=== PATIENT | female | born 1930 | race Caucasian/White ===

== ENCOUNTER 2017-11-13 16:34 | Emergency (ER) | payer MEDICARE ==
--- NOTE | 2017-11-13 17:17 | ED ---
Influenza-Like Illness - HPI Summary HPI Summary: 87F presents with cough and fatigue for past 6 days. She resides at a alf and that has had high rate of influenza. She admits to shortness of breath. She denies any nausea, vomiting, or diarrhea. She denies any headache. She denies any known fever. She admits to intermittent generalized abdominal pain. She admits to a sore throat and nasal congestion. She denies any increase swelling or pain in her calf. She denies any chest pain. She states I was going okay and that they picked me up today and took me to the hospital. She has history of COPD and HTN. per dr breen she has been having low grade fevers, malaise and cough for 6 days and sent in for chest xray. - History of Current Complaint Chief Complaint: EDFluSymptoms Time Seen by Provider: 11/13/17 16:56 - Allergy/Home Medications Allergies/Adverse Reactions: Allergies Allergy/AdvReac Type Severity Reaction Status Date / Time Amoxicillin [From Augmentin] Allergy Unknown Unknown Verified 07/18/16 15:31 Reaction Details Carisoprodol [From Soma] Allergy Unknown Unknown Verified 07/18/16 15:31 Reaction Details Clavulanic Acid Allergy Unknown Unknown Verified 07/18/16 15:31 [From Augmentin] Reaction Details Codeine Allergy Unknown Unknown Verified 07/18/16 15:31 Reaction Details Lisinopril Allergy Unknown Unknown Verified 07/18/16 15:31 Reaction Details Moxifloxacin [From Avelox] Allergy Unknown Unknown Verified 07/18/16 15:31 Reaction Details PMH/Surg Hx/FS Hx/Imm Hx Endocrine/Hematology History: Reports: Hx Anemia, Other Endocrine/Hematological Disorders - Hyponatremia Denies: Hx Diabetes, Hx Thyroid Disease Cardiovascular History: Reports: Hx Angina, Hx Coronary Artery Disease, Hx Hypertension, Other Cardiovascular Problems/Disorders - Chronic Chest pain, 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 Denies: Hx Congestive Heart Failure, Hx Hypercholesterolemia, Hx Myocardial Infarction, Hx Pacemaker/ICD, Hx Valvular Heart Disease Respiratory History: Reports: Hx Chronic Obstructive Pulmonary Disease (COPD) - per CT past admissions Denies: Hx Asthma, Other Respiratory Problems/Disorders GI History: Reports: Hx Gastroesophageal Reflux Disease, Other GI Disorders - endometriosis, hemorrhoids History: Denies: Other Problems/Disorders - frequency Musculoskeletal History: Reports: Hx Back Problems, Other Musculoskeletal History - degen bones, chronic edema Denies: Hx Arthritis, Hx Osteoporosis Sensory History: Reports: Hx Cataracts, Hx Contacts or Glasses, Hx Macular Degeneration, Hx Vision Problem, Hx Hearing Aid, Hx Hearing Problem Denies: Hx Glaucoma Opthamlomology History: Reports: Hx Cataracts, Hx Contacts or Glasses, Hx Macular Degeneration, Hx Vision Problem Denies: Hx Glaucoma Neurological History: Reports: Other Neuro Impairments/Disorders - bells palsy, shingles, confusion, INVASIVE MELANOMA LEFT SIDE OF FACE Denies: Hx Headaches, Hx Seizures, Hx Transient Ischemic Attacks (TIA) Psychiatric History: Reports: Hx Anxiety, Hx Depression, Other Psychiatric Issues/Disorders - Sleep disorders Denies: Hx Panic Disorder - Cancer History Cancer Type, Location and Year: skin CA: invasive melanoma left side of face - Surgical History Surgery Procedure, Year, and Place: Hysterectomy, Left knee, tonsilectomy, apendectomy, bunuons, MELANOMA REMOVED L SIDE OF FACE 2014 DR [place]. 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 Negative: Vomiting, Diarrhea, Nausea All Other Systems Reviewed And Are Negative: Yes Physical Exam Triage Information Reviewed: Yes Vital Signs On Initial Exam: Initial Vitals Temp Pulse Resp BP Pulse Ox 99.6 F 72 20 134/33 94 11/13/17 16:46 11/13/17 16:46 11/13/17 16:46 11/13/17 16:46 11/13/17 16:46 Vital Signs Reviewed: Yes Appearance: Positive: Well-Appearing Skin: Positive: Warm, Dry Head/Face: Positive: Normal Head/Face Inspection Eyes: Positive: Normal, EOMI, OREN, Conjunctiva Clear ENT: Positive: Pharyngeal erythema, Nasal congestion, TMs normal, Uvula midline , Other - soft palate symmetric. Negative: Tonsillar swelling, Tonsillar exudate, Trismus, Muffled voice Neck: Positive: Supple, Nontender, No Lymphadenopathy Respiratory/Lung Sounds: Positive: Clear to Auscultation, Breath Sounds Present Cardiovascular: Positive: Normal, RRR Abdomen Description: Positive: Nontender, Soft Bowel Sounds: Positive: Present Musculoskeletal: Positive: Normal Neurological: Positive: Normal Psychiatric: Positive: Normal - Ro Coma Scale Coma Scale Total: 15 Diagnostics - Vital Signs Vital Signs Temp Pulse Resp BP Pulse Ox 11/13/17 16:46 99.6 F 72 20 134/33 94 - Laboratory Result Diagrams: 11/13/17 17:24 11/13/17 17:24 Lab Statement: Any lab studies that have been ordered have been reviewed, and results considered in the medical decision making process. - Radiology chest Xray Interpretation: Positive (See Comments) - IMPRESSION: HYPERINFLATION. NO ACTIVE CARDIOPULMONARY DISEASE. Radiology Interpretation Completed By: Radiologist Flu Symptom Course/Dx - Course Course Of Treatment: 87F presents with cough and fatigue for past 6 days. She resides at a alf and that has had high rate of influenza. She admits to shortness of breath. She denies any nausea, vomiting, or diarrhea. She denies any headache. She denies any known fever. She admits to intermittent generalized abdominal pain. She admits to a sore throat and nasal congestion. She denies any increase swelling or pain in her calf. She states I was going okay and that they picked me up today and took me to the hospital. She has history of COPD and HTN. per dr breen she has been having low grade fevers, malaise and cough for 6 days and sent in for chest xray. on exam lungs CTA. pharynx erythema, sinus congestion present. flu neg. wbc 10. NA and Cl low so will give a liter of fluids. chest xray shows hyperinflation. patient states would like to go home. likely as viral illness. will discharge home to follow up with primary. patient understand and agrees with plan. - Diagnoses Differential Diagnosis/HQI/PQRI: Positive: Bronchitis, Influenza, Pneumonia Provider Diagnoses: Cough Discharge - Discharge Plan Condition: Good Disposition: HOME Patient Education Materials: Acute Cough (ED) Referrals: Rodolfo Robledo MD [Primary Care Provider] - Additional Instructions: Follow up with primary within 5 days Return to ED if develop any new or worsening symptoms
[2017-11-13 17:40] LABS: ABS Basophils 0 10^3/ul (0-0.2); ABS Eosinophils 0.1 10^3/ul (0-0.6); ABS Lymphocytes 1.2 10^3/ul (1.0-4.8); ABS Monocytes 1.2 10^3/ul (0-0.8); ABS Neutrophils 7.7 10^3/ul (1.5-7.7); ABS Nucleated RBC 0 10^3/ul; Eosinophil % 0.5 % (0-6); Hematocrit 32 % (35-47); Mean Corpuscular HGB Conc 31 g/dl (31-36); Mean Corpuscular Hemoglobin 22 pg (27-31); Mean Corpuscular Volume 71 fL (80-97); Mean Platelet Volume 8 um3 (7.4-10.4); Nucleated Red Blood Cells % 0; Platelet Count 210 10^3/ul (150-450); Red Blood Count 4.48 10^6/ul (4.0-5.4); Red Cell Distribution Width 21 % (10.5-15); White Blood Count 10.2 10^3/ul (3.5-10.8)
[2017-11-13 17:48] LABS: EGFR Non-African American 50.6 (>60)
--- NOTE | 2017-11-13 17:49 | RAD ---
HISTORY: Cough COMPARISONS: July 18, 2016 VIEWS: 4: Frontal dual-energy and lateral views of the chest. FINDINGS: CARDIOMEDIASTINAL SILHOUETTE: The cardiomediastinal silhouette is normal. LEANDER: The leander are normal. PLEURA: The costophrenic angles are sharp. No pleural abnormalities are noted. LUNG PARENCHYMA: There is hyperinflation with flattening of the diaphragm and expansion of the AP diameter of the chest. ABDOMEN: The upper abdomen is clear. There is no subphrenic gas. BONES AND SOFT TISSUES: No bone or soft tissue abnormalities are noted. OTHER: None. IMPRESSION: HYPERINFLATION. NO ACTIVE CARDIOPULMONARY DISEASE.
[2017-11-13] MEDS ORDERED: NS 0.9% 1000 ML* 1,000 ML IV ONE (17:51)
[2017-11-13 20:30] VITALS: BP 121/67
== END 2017-11-13 20:30 | disposition home or self-care (01) ==
LOC: ED 16:34
DX: R05 Cough (principal); R10.84 Generalized abdominal pain; R06.02 Shortness of breath
CPT/HCPCS: 36415; 71046; 80053; 83605; 85025; 87502; 99283

== ENCOUNTER 2018-02-19 01:23 | Inpatient (IN) | payer MEDICARE ==
[2018-02-19 02:41] LABS: INR 0.97 (0.77-1.02)
[2018-02-19 02:44] LABS: EGFR Non-African American 54.2 (>60)
[2018-02-19] MEDS ORDERED: Clopidogrel TAB* 300 MG PO ONE (02:51)
[2018-02-19] MEDS ORDERED: Enoxaparin(*) 60 MG/0.6 ML SYR SUBCUT ONE (02:51)
[2018-02-19] MEDS ORDERED: Nitroglycerin 2% OINT* 1 GM PAK TOPICAL ONE (02:59)
[2018-02-19 03:04] LABS: ABS Basophils 0 10^3/ul (0-0.2); ABS Eosinophils 0.3 10^3/ul (0-0.6); ABS Lymphocytes 1.4 10^3/ul (1.0-4.8); ABS Monocytes 0.8 10^3/ul (0-0.8); ABS Neutrophils 4.8 10^3/ul (1.5-7.7); ABS Nucleated RBC 0 10^3/ul; Eosinophil % 4.1 % (0-6); Hematocrit 33 % (35-47); Hemoglobin 10.1 g/dl (12.0-16.0); Lymphocyte % 19.1 % (25-47); Mean Corpuscular HGB Conc 31 g/dl (31-36); Mean Corpuscular Hemoglobin 23 pg (27-31); Mean Corpuscular Volume 76 fL (80-97); Mean Platelet Volume 8.5 um3 (7.4-10.4); Nucleated Red Blood Cells % 0; Platelet Count 200 10^3/ul (150-450); Red Blood Count 4.31 10^6/ul (4.0-5.4); Red Cell Distribution Width 18 % (10.5-15); White Blood Count 7.4 10^3/ul (3.5-10.8)
--- NOTE | 2018-02-19 03:31 | ED ---
Malcolm Walker Gabriel, scribed for Chari Matson MD on 02/19/18 at 0212 . HPI Chest Pain - HPI Summary HPI Summary: This patient is a 87 year old F BIBA to [facility] from her assisted living facility after she woke up with CP pain that began [employer]. The patient rates the pain 0/10 in severity. Patient reports feeling cold, CP (that has resolved), LUE pain, and COVINGTON. Patient denies n/v and SOB. EMS report the original call was placed for a COVINGTON but on arrival she c/o CP. Pt is pain free at this time and was given nitro /ASA by EMS. She states all pain has resolved except for her LUE pain. Hx CVA and HTN. - History of Current Complaint Chief Complaint: EDChestPainROMI Time Seen by Provider: 02/19/18 01:41 Hx Obtained From: Patient Onset/Duration: Still Present, Resolved Timing: Constant Initial Severity: Moderate Current Severity: Mild Pain Intensity: 0 Pain Scale Used: 0-10 Numeric Chest Pain Radiates: No Alleviating Factor(s): NTG 123, Spontaneous Resolution Associated Signs and Symptoms: Positive: Negative - n/v and SOB, Other: - cold, CP (that has resolved), LUE pain, and COVINGTON - Additional Pertinent History Primary Care Physician: [id number] - Allergy/Home Medications Allergies/Adverse Reactions: Allergies Allergy/AdvReac Type Severity Reaction Status Date / Time amoxicillin [From Augmentin] Allergy Unknown Verified 02/19/18 01:36 Reaction Details carisoprodol [From Soma] Allergy Unknown Verified 02/19/18 01:36 Reaction Details clavulanic acid Allergy Unknown Verified 02/19/18 01:36 [From Augmentin] Reaction Details codeine Allergy Unknown Verified 02/19/18 01:36 Reaction Details lisinopril Allergy Unknown Verified 02/19/18 01:36 Reaction Details moxifloxacin [From Avelox] Allergy Unknown Verified 02/19/18 01:36 Reaction Details Home Medications: Home Medications Escitalopram (NF) [Lexapro 5 mg (NF)] 15 mg PO DAILY 02/19/18 [History Confirmed 02/19/18] GuaiFENesin DM* [Robitussin DM*] 10 ml PO Q4H PRN 02/19/18 [History Confirmed ] Nadolol (NF) 20 mg PO DAILY 02/19/18 [History Confirmed 02/19/18] Polyvinyl Alcohol/Povidone/Pf [Refresh] 1 sarah beth OP DAILY 02/19/18 [History Confirmed 02/19/18] PMH/Surg Hx/FS Hx/Imm Hx Endocrine/Hematology History: Reports: Hx Anemia, Other Endocrine/Hematological Disorders - Hyponatremia Denies: Hx Diabetes, Hx Thyroid Disease Cardiovascular History: Reports: Hx Angina, Hx Coronary Artery Disease, Hx Hypertension, Other Cardiovascular Problems/Disorders - Chronic Chest pain, 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 Denies: Hx Congestive Heart Failure, Hx Hypercholesterolemia, Hx Myocardial Infarction, Hx Pacemaker/ICD, Hx Valvular Heart Disease Respiratory History: Reports: Hx Chronic Obstructive Pulmonary Disease (COPD) - per CT past admissions Denies: Hx Asthma, Other Respiratory Problems/Disorders GI History: Reports: Hx Gastroesophageal Reflux Disease, Other GI Disorders - endometriosis, hemorrhoids History: Denies: Other Problems/Disorders - frequency Musculoskeletal History: Reports: Hx Back Problems, Other Musculoskeletal History - degen bones, chronic edema Denies: Hx Arthritis, Hx Osteoporosis Sensory History: Reports: Hx Cataracts, Hx Contacts or Glasses, Hx Macular Degeneration, Hx Vision Problem, Hx Hearing Aid, Hx Hearing Problem Denies: Hx Glaucoma Opthamlomology History: Reports: Hx Cataracts, Hx Contacts or Glasses, Hx Macular Degeneration, Hx Vision Problem Denies: Hx Glaucoma Neurological History: Reports: Other Neuro Impairments/Disorders - bells palsy, shingles, confusion, INVASIVE MELANOMA LEFT SIDE OF FACE Denies: Hx Headaches, Hx Seizures, Hx Transient Ischemic Attacks (TIA) Psychiatric History: Reports: Hx Anxiety, Hx Depression, Other Psychiatric Issues/Disorders - Sleep disorders Denies: Hx Panic Disorder - Cancer History Cancer Type, Location and Year: skin CA: invasive melanoma left side of face - Surgical History Surgery Procedure, Year, and Place: Hysterectomy, Left knee, tonsilectomy, apendectomy, bunuons, MELANOMA REMOVED L SIDE OF FACE 2014 DR [place]. 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 Denies: History Other Infectious Disease, Traveled Outside the [place] in Last 30 Days - Family History Known Family History: Positive: Cardiac Disease - sister - Social History Alcohol Use: None Hx Substance Use: No Substance Use Type: Reports: None Hx Tobacco Use: No Smoking Status (MU): Never Smoked Tobacco Have You Smoked in the Last Year: No Review of Systems Positive: Other - feeels cold Positive: Chest Pain Negative: Shortness Of Breath Negative: Vomiting, Nausea Positive: Other - LUE pain Positive: Headache All Other Systems Reviewed And Are Negative: Yes Physical Exam - Summary Physical Exam Summary: VITAL SIGNS: Reviewed. GENERAL: Patient is an elderly female who is lying comfortable in the stretcher. Patient is not in any acute respiratory distress. HEAD AND FACE: No signs of trauma. No ecchymosis, hematomas or skull depressions. No sinus tenderness. EYES: PERRLA, EOMI x 2, No injected conjunctiva, no nystagmus. EARS: Hearing grossly intact. Ear canals and tympanic membranes are within normal limits. MOUTH: Oropharynx within normal limits. NECK: Supple, trachea is midline, no adenopathy, no JVD, no carotid bruit, no c- spine tenderness, neck with full ROM. CHEST: Symmetric, no tenderness at palpation LUNGS: Clear to auscultation bilaterally. No wheezing or crackles. CVS: Regular rate and rhythm, S1 and S2 present, no murmurs or gallops appreciated. ABDOMEN: Soft, non-tender. No signs of distention. No rebound no guarding, and no masses palpated. Bowel sounds are normal. EXTREMITIES: FROM in all major joints, no edema, no cyanosis or clubbing. NEURO: Alert and oriented x 3. Left sided facial droop that is old SKIN: Dry and warm Triage Information Reviewed: Yes Vital Signs On Initial Exam: Initial Vitals Temp Pulse Resp BP Pulse Ox 98.0 F 57 17 184/72 98 02/19/18 01:24 02/19/18 01:24 02/19/18 01:24 02/19/18 01:24 02/19/18 01:24 Vital Signs Reviewed: Yes Diagnostics - Vital Signs Vital Signs Temp Pulse Resp BP Pulse Ox 02/19/18 01:51 61 16 95 02/19/18 01:24 98.0 F 57 17 184/72 98 - Laboratory Result Diagrams: 02/19/18 02:16 Lab Statement: Any lab studies that have been ordered have been reviewed, and results considered in the medical decision making process. - Radiology CXR Radiology Interpretation Completed By: ED Physician - no acute process - EKG 01:56 Cardiac Rate: Bradycardia EKG Rhythm: Sinus Bradycardia - at 56 BPM EKG Interpretation: PVCs, LVH, no acute ischemic changes Re-Evaluation - Re-Evaluation First Eval Re-Evaluation Time: 03:01 Change: Unchanged Comment: I discussed admission with the patient Chest Pain Course/Dx - Diagnoses Provider Diagnoses: Acute coronary syndrome - Provider Notifications Discussed Care Of Patient With: Fidel Winchester Time Discussed With Above Provider: 02:56 Instructed by Provider To: Admit As Inpatient Discharge - Sign-Out/Discharge Documenting (check all that apply): Discharge - Discharge Plan Condition: Fair Disposition: ADMITTED TO [facility] Referrals: Rodolfo Robledo MD [Primary Care Provider] - The documentation as recorded by the Malcolm webber Gabriel accurately reflects the service I personally performed and the decisions made by Dano adler Abdul, MD.
[2018-02-19] MEDS ORDERED: Metoprolol Tartrate IV* 1 MG/ML 5 ML VIAL IV PRN (03:42)
[2018-02-19] MEDS ORDERED: Nitroglycerin TAB 0.4 MG* 0.4 MG TAB SL PRN (03:43)
[2018-02-19] MEDS ORDERED: Senna TAB PO PRN (03:43)
[2018-02-19] MEDS ORDERED: GuaiFENesin DM* 5 ML UDC PO PRN (03:43)
[2018-02-19] MEDS ORDERED: Acetaminophen TAB* 325 MG PO PRN (03:43)
[2018-02-19] MEDS ORDERED: Atorvastatin* 80 MG TAB PO ONE (04:09)
[2018-02-19] MEDS: Metoprolol Tartrate TAB* 25 MG PO SCH ×4 (05:32→22:12)
--- NOTE | 2018-02-19 07:25 | HP ---
HISTORY AND PHYSICAL: DATE OF ADMISSION: 02/19/18 ADMITTING PROVIDER: Fidel Winchester MD PRIMARY CARE PROVIDER: Dr. Herrmann. CHIEF COMPLAINT: Left-sided shoulder and chest pain. 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 She was in her usual state of health, went to sleep around 10:30 p.m. on 02/18/18. She woke up with extreme "cutting" pain in her left shoulder radiating down through her left chest. She is a poor historian, but seems to indicate that this lasted on the order of seconds to minutes rather than longer than that. She denies any shortness of breath, nausea, vomiting, diaphoresis. She has never experienced anything like this. EMS was called and she got nitroglycerin and 324 mg of aspirin. On presentation to the [facility] Room, she had an elevated troponin of 0.13. EKG showed T-wave inversions and aVL in lead I along with PVCs. No other ST elevations or depressions. She was referred to hospitalist service for chest pain and ACS rule out. She was also noted to be hypertensive to 190s. She was given 300 mg Plavix, Lovenox 50 mg and started on a nitro patch by Dr. Matson in the emergency room. At baseline, the patient is from [facility], ambulates with a walker. She is a DNR/DNI. She is followed up with Dr. Clancy in the past. Echocardiogram from 04/09/16 showed ejection fraction of 55% to 60% with moderate tricuspid valve regurgitation, mild-to- moderate mitral valve regurgitation, mild pulmonary hypertension. She had a stress test on 05/31/16, which was low risk, EF of 70%. PAST MEDICAL HISTORY: Hypertension, anxiety, depression, facial shingles status post surgery and Cordoba's palsy, GERD, endometriosis. PAST SURGICAL HISTORY: Total abdominal bilateral salpingo-oophorectomy, hysterectomy, right facial surgery above right eye for facial shingles. MEDICATIONS: Include: 1. Losartan 50 mg daily. 2. Valium 2 mg p.o. b.i.d. 3. Nadolol 20 mg daily. 4. Lexapro 15 mg daily. 5. Nitroglycerin 0.4 mg sublingual as needed. 6. Omeprazole 20 mg daily. 7. Fluticasone b.i.d. 8. Trazodone 50 mg q.h.s. 9. Oxybutynin 15 mg daily. 10. Robitussin 10 mL p.o. q.4 hours p.r.n. 11. Senna 2 tablets p.o. daily p.r.n. 12. Refresh artificial tear ointment 1 ointment both eyes q.p.m. 13. Biotene 2 sprays p.o. q.3 hours p.r.n. 14. Zinc oxide 12.8% topical to face b.i.d. 15. Polyvinyl alcohol (Refresh 1 drop) OP daily. 16. Magnesium oxide 400 mg p.o. daily. ALLERGIES: AMOXICILLIN, SOMA, AUGMENTIN, CODEINE, LISINOPRIL, MOXIFLOXACIN. FAMILY HISTORY: Dad had "heart problems." Does not know details of mother's or know the ages that they passed. Per EMR, they both passed in their 90s. SOCIAL HISTORY: The patient is a resident of [facility]. Her medical surrogate is her niece, Janis Ashley at [phone]. She has a sister, who is about to leave a care facility. Formerly was , had no children. Had a miscarriage. She is never a smoker. Does not drink or use other recreational drugs. REVIEW OF SYSTEMS: A complete 14-point review of systems is negative except as per HPI. She denies any shortness of breath, cough, fevers, chills, abdominal pain, nausea, vomiting, diarrhea, constipation, recent falls, rashes, or headaches. PHYSICAL EXAMINATION GENERAL APPEARANCE: No acute distress, sitting up or lying down in the [facility]. VITAL SIGNS: Temperature 98.0, pulse rate 63, satting 95% to 98% on room air, respiratory rate 12 to 17, blood pressure initially 191/97. HEENT: Normocephalic, atraumatic. Pupils are equally round and reactive to light. Evidence of an old scar above right eye. The right eyelid droops. RESPIRATORY: Clear to auscultation bilaterally with no wheezing, rales, or rhonchi. CARDIOVASCULAR: Regular rate and rhythm. No murmurs, rubs, or gallops. ABDOMEN: Soft, nontender, nondistended. EXTREMITIES: Warm and well perfused. Trace edema bilaterally. NEUROLOGIC: Cranial nerves intact other than right eyelid droop. Tongue midline. Facial sensation is equal bilaterally. Tailman strength intact. Hip flexion 5/5. Sensation intact in the right lower extremities. DIAGNOSTIC STUDIES/LAB DATA: White count 7.4, hemoglobin 10.1, hematocrit 33, MCV is 76, platelets 200. INR 0.97. Sodium 136, potassium 4.1, chloride 101, carbon dioxide 28, BUN 21, creatinine 0.97, glucose 121, lactic acid 0.8. Total bili 0.4, AST 31, ALT 23, alk phos 23. Troponin 0.13. Albumin 3.6. Chest x-ray with no infiltrate or effusions per my read. EKG with left anterior fascicular block, Qs in aVL and V1, [address] elevation in V1. ASSESSMENT AND PLAN: Stacey Oconnor is an 87-year-old female with past medical history of hypertension, Cordoba's palsy, preserved ejection fraction in 2015 with negative stress test in May 2016, presenting with 10/10 cutting chest pain and the left shoulder radiating down through the entire left chest that last for approximately a few seconds to a few minutes. The patient is a very poor historian. She is presenting with a troponin elevation of 0.13 and some T-wave inversions and hypertensive urgency of 190s/90s. She is status post Plavix, Lovenox in the emergency room and then received aspirin 324 mg and nitro sublingual with EMS. We will admit her to observation status on telemetry. Trend troponins every 3 hours. Continue aspirin 81 mg daily and she has been put on nitro paste by ED physician to also help with her blood pressure, starting metoprolol tartrate p.o. 25 mg p.o. q.6 hours. We will consult Cardiology in the morning and repeat EKG at 8 p.m. Her chest pain is now largely resolved, though she states she is slightly uncomfortable on that left side, but minimally so. For her hypertensive urgency, starting the metoprolol and continuing the nitroglycerin ointment. Also p.r.n. metoprolol tartrate 5 mg IV q.2 hours p.r.n. following his heart rates above 55. She will be n.p.o. for now. She is a DNR/DNI. Copy of the MOLST is in chart. Holding her losartan 50 mg, but consider restart later in the day depending on her blood pressures and heart rates. Continue note Plavix to start on 02/20/18. Medical surrogate is rafaelradha Janis Mendynicolenoraheem. [id number]/[facility] #: [id number] MTDD
--- NOTE | 2018-02-19 07:43 | RAD ---
HISTORY: Chest pain COMPARISONS: November 13, 2017 VIEWS: 1: frontal portable view of the chest at 2:00 AM FINDINGS: LINES AND TUBES: None. CARDIOMEDIASTINAL SILHOUETTE: The cardiac silhouette is mildly enlarged. The cardiomediastinal silhouette is otherwise normal for portable technique. PLEURA: The costophrenic angles are sharp. No pleural abnormalities are noted. LUNG PARENCHYMA: There is hyperinflation. ABDOMEN: The upper abdomen is clear. There is no subphrenic gas. BONES AND SOFT TISSUES: No bone or soft tissue abnormalities are noted. IMPRESSION: COPD. MILD CARDIOMEGALY. NO ACTIVE CARDIOPULMONARY DISEASE.
[2018-02-19] MEDS: Isosorbide Dinitrate TAB* 20 MG PO SCH ×2 (08:37→17:20)
[2018-02-19] MEDS: Polyethylene Glycol 3350* 17 GM PACKET PO SCH (08:37)
[2018-02-19] MEDS: Magnesium Oxide TAB* 400 MG PO SCH (08:37)
[2018-02-19] MEDS: Diazepam TAB(*) 5 MG PO SCH ×2 (08:37→20:36)
[2018-02-19] MEDS: Sucralfate TAB* 1 GM PO SCH ×2 (08:37→20:37)
[2018-02-19] MEDS: Aspirin 81 mg CHEW TAB* 81 MG TAB.CHEW PO SCH (08:37)
[2018-02-19] MEDS: Fluticasone NASAL SPRAY 50MCG* 16 gm SPRAY BTL BOTH NARES SCH ×2 (08:38→22:12)
--- NOTE | 2018-02-19 09:26 | ECHO ---
Patient: KENDY KLEIN [facility] Rec#: [id number] : 1930 Date: 02/19/2018 Age: 87y Height: 154.94 cm / 61.0 in Weight: 49.9 kg / 110.0 lbs Sex: F BSA: 1.47 Room#: [facility] Admit Date#: 02/19/2018 Type: Inpatient Referring: Fidel Winchester Reading: Alex Ward MD Kitchen Manager: Eva Gee RDCS CC: Rodolfo Robledo MD Transthoracic Echocardiogram Indication: Chest Pain, ACS. BP: 182/52 HR: 56 Rhythm: NSR with PVCs Findings History: HTN, CVA, Ventricular bigeminy, Cordoba's Palsy, and COPD. Technical Comments: The study quality is good. Completed at 0840. Left Ventricle: The left ventricular chamber size is normal. Mild concentric left ventricular hypertrophy is observed. Mild global hypokinesis of the left ventricle is observed. There is mildly decreased left ventricular systolic function. The estimated ejection fraction is 40-45%. There is no consistent Doppler evidence of clinically significant diastolic dysfunction. The apical septal, apical anterior, apical lateral, and apical inferior wall segments are hypokinetic (score 2). Overall wallmotion score index is 2.00 Left Atrium: The left atrium is moderately dilated. Right Ventricle: The right ventricular cavity size is normal. The right ventricular global systolic function is low normal. Right Atrium: The right atrium is mildly dilated. Aortic Valve: The aortic valve is trileaflet. The aortic valve leaflets are mildly thickened. There is a trace of aortic regurgitation. There is no evidence of aortic stenosis. Mitral Valve: The mitral valve leaflets are mildly thickened. There is moderate mitral regurgitation. There is no evidence of mitral stenosis. Tricuspid Valve: The tricuspid valve leaflets are mildly thickened. There is moderate to severe tricuspid regurgitation. The right ventricular systolic pressure is estimated at 52 mmHg. There is evidence of moderate pulmonary hypertension. There is no tricuspid stenosis. Pulmonic Valve: The pulmonic valve appears normal. There is mild pulmonic regurgitation. There is no pulmonic stenosis. Pericardium: There is no significant pericardial effusion. Aorta: There is no dilatation of the ascending aorta. There is no dilatation of the aortic arch. The aortic root is normal in size. Pulmonary Artery: The main pulmonary artery is not well visualized. Venous: The inferior vena cava appears normal in size. There is an approximate 50% respiratory change in the inferior vena cava dimension. Conclusions There is mildly decreased left ventricular systolic function. The estimated ejection fraction is 40-45%. There is no consistent Doppler evidence of clinically significant diastolic dysfunction. The apical septal, apical anterior, apical lateral, and apical inferior wall segments are hypokinetic (score 2). The right ventricular global systolic function is low normal. There is a trace of aortic regurgitation. There is moderate mitral regurgitation. There is moderate to severe tricuspid regurgitation. There is evidence of moderate pulmonary hypertension. There is no significant pericardial effusion. Compared to study of 04/10/16, the LV function now has new wall motion abnormalitiy. Both The MR and TR are worse Measurements Name Value Normal Range RVIDd (AP) 2D 2.2 cm (0.9 - 2.6) RVDdMajor (2D) 3.8 cm (2.2 - 4.4) RAd ISD 4CH 4.8 cm (3.4 - 4.9) RA (A4C)W 4.8 cm (2.9 - 4.6) IVSd (2D) 1.1 cm (0.6 - 1) LVPWd (2D) 1.1 cm (0.6 - 1) LVIDd (2D) 4.3 cm (3.6 - 5.4) LVIDs (2D) 3.2 cm - LV FS (2D) 26 % (25 - 45) Aortic Annulus 1.6 cm (1.4 - 2.6) Ao root diameter (2D) 2.3 cm (2.1 - 3.5) Ascending Ao 2.8 cm (2.1 - 3.4) Aortic arch 2.2 cm (1.8 - 3.4) LA dimension (AP) 2D 3.9 cm (2.3 - 3.8) LAd ISD 4CH 5.8 cm (2.9 - 5.3) LA ISD 4CH W 4.4 cm (2.5 - 4.5) Name Value Normal Range LA ESV SP 4CH (A/L) 62 ml - LA ESV SP 2CH (A/L) 69 ml - LA ESV BP (A/L) 66 ml - LA ESV BP (A/L) index 45 ml/m2 - LA ESV SP 4CH (MOD) 58 ml - LA ESV SP 2CH (MOD) 66 ml - Name Value Normal Range MV E-wave Vmax 0.91 m/sec - MV deceleration time 191.35 msec - MV A-wave Vmax 0.48 m/sec - MV E:A ratio 2.22 ratio - LV septal e' Vmax 0.06 m/sec - LV lateral e' Vmax 0.07 m/sec - LV E:e' septal ratio 15.17 ratio - LV E:e' lateral ratio 13 ratio - Name Value Normal Range AV Vmax 0.97 m/sec - AV VTI 25.56 cm - AV peak gradient 3.78 mmHg - AV mean gradient 2.35 mmHg - LVOT Vmax 0.71 m/sec - LVOT VTI 18.7 cm - LVOT peak gradient 2.05 mmHg - LVOT mean gradient 1.09 mmHg - KAREN Vmax 0.8 m/sec - Name Value Normal Range MR Vmax 6.04 m/sec - MR VTI 241.2 cm - MR flow (PISA) 88.4 ml/sec - MR ERO 0.15 cm2 - MR PISA radius 0.7 cm - MR alias Vmax 29 cm/sec - Name Value Normal Range TR Vmax 3.3 m/sec - TR peak gradient 44 mmHg - RAP 8 mmHg - RVSP 52 mmHg - IVC diameter 2.1 cm - Name Value Normal Range PV Vmax 0.65 m/sec - PV peak gradient 1.71 mmHg - OR end-diastolic Vmax 1.27 m/sec - Wallmotion BAS Not Seen BA Not Seen BAL Not Seen RUEL Not Seen BI Not Seen BIS Not Seen MAS Not Seen MA Not Seen MAL Not Seen MIL Not Seen KS Not Seen MIS Not Seen Hypokinetic AA Hypokinetic AL Hypokinetic AI Hypokinetic APEX Akinetic
[2018-02-19] MEDS ORDERED: NS 0.9% 1000 ML* 1,000 ML IV SCH (10:30)
[2018-02-19] MEDS ORDERED: Diazepam TAB(*) 5 MG PO ONE (13:11)
[2018-02-19] MEDS ORDERED: diPHENhydraMINE PO* 25 MG PO ONE (13:11)
[2018-02-19] MEDS ORDERED: VERAPAMIL 2.5 MG/ML 2 ML VIAL ** 5 mg/2 ml ONE (13:44)
[2018-02-19] MEDS ORDERED: Heparin(*) 1000 UNIT/ML 10 ML VIAL CATH LAB IV ONE (13:44)
[2018-02-19] MEDS ORDERED: Heparin 2 UNITS/ML IVPREMIX* 2,000 ML IV ONE (13:44)
[2018-02-19] MEDS ORDERED: Iohexol 350 (CONTRAST) 200 ML MDV IV ONE (13:45)
[2018-02-19] MEDS ORDERED: Lidocaine 1% INJ* 10 MG/ML 30 ML SDV ONE (13:45)
[2018-02-19] MEDS ORDERED: nitroGLYCERIN DRIP* 25,000 MCG/250 ML BTL ONE (13:45)
[2018-02-19] MEDS ORDERED: fentaNYL* 50 MCG/ML 2 ML VIAL (100 MCG VIAL) ONE (14:01)
[2018-02-19] MEDS ORDERED: Midazolam* 1 MG/ML 10 ML VIAL (10 MG) ONE (14:01)
[2018-02-19] MEDS ORDERED: Iodixanol* (CONTRAST) 320 MG/ML 100 ML SDV ONE (14:09)
--- NOTE | 2018-02-19 16:13 | PN ---
Hospitalist Progress Note Date of Service: 02/19/18 HOSPITALIST ADDENDUM Mrs. Oconnor is an 87yo F with PMH of HTN, anxiety/depression, Cordoba's palsy, GERD , who presented to ED with c/o left shoulder pain radiating to her left breast. She did have positive troponins. Cardiology input appreciated - awaiting niece for consent for cardiac cath. Continue medical management.
--- NOTE | 2018-02-19 16:59 | CONS ---
CC: Dr. Herrmann; Dr. Valentin stoddard at [facility] * CARDIOLOGY CONSULTATION: DATE OF CONSULT: 02/19/18 INDICATION FOR CONSULTATION: Left shoulder pain radiating to the left chest pain, acute coronary syndrome. HISTORY OF PRESENT ILLNESS: The patient is an 87-year-old female with a history of hypertension, anxiety, [id number] dementia, who was transferred to the emergency room from [place]. The patient is a little difficult getting a history from, but does state that yesterday she was experiencing left shoulder pain that radiated into her chest. It was difficult to assess how intense the discomfort was and it was difficult to assess the duration. The patient came to the emergency room and her EKG showed normal sinus rhythm, but no evidence of ST segment elevation. Her initial troponin level was 0.13. Her second troponin was 1.5 consistent with an acute coronary syndrome. The patient was admitted to the hospital here in April, for chest pain. At that time, she had a stress test and an EKG both of which were unremarkable. 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 PAST SURGICAL HISTORY: Total abdominal hysterectomy. OUTPATIENT MEDICATIONS: 1. Losartan 50 mg a day. 2. Nadolol 20 mg a day. 3. Lexapro 15 mg a day. 4. Valium 2 mg twice a day. 5. Omeprazole 20 mg a day. 6. Oxybutynin 15 mg a day. ALLERGIES: To AMOXICILLIN, AUGMENTIN. SOCIAL HISTORY: She is a resident of [facility]. Her surrogate is her niece, Janis, who I spoke to. She has never been a smoker. Rare alcohol intake. PHYSICAL EXAM: Height is 5 feet 3 inches, weight is 110 pounds. Temperature 97.6, heart rate is 88, respiratory rate is 16, blood pressure 180/52. Sclerae anicteric. Oropharynx is pink without erythema. Carotids are 2+ without bruits. JVD is normal. Thyroid is normal. Cardiac Exam: S1 and S2 without any murmurs, rubs, or gallops. Lungs: Clear to auscultation bilaterally. There is no dullness to percussion. Abdomen is soft, nontender, and nondistended with normoactive bowel sounds. Extremities show no edema. She has 2+ pulses throughout. The patient is awake, alert, and oriented. She moves all 4 extremities equally. DIAGNOSTIC STUDIES/LAB DATA: CBC within normal limits. Hemoglobin 10, hematocrit 33. Chemistries within normal limits. BUN 21, creatinine 0.9. AST and ALT are normal. Troponins as described above. BNP 398. Total cholesterol 160, LDL cholesterol of 98. EKG shows normal sinus rhythm with PVCs and LVH. An echocardiogram today showed normal LV size with mildly reduced LV systolic function, ejection fraction of 40% to 45%. She does have apical hypokinesis. No significant valvular abnormalities. IMPRESSION: This is an 87-year-old female with kqiv-yr-aazcywxh dementia who came to the emergency room because of chest pain. She has ruled in for a non- ST segment elevation myocardial infarction. Peak troponin 1.5. She does have apical hypokinesis on her echocardiogram. I had a long discussion with the patient's niece who is the power of business attorney regarding the risks and benefits of invasive therapy versus conservative management. All questions were asked and answered. The decision at the end was to proceed with invasive therapy. The patient will be continued on aspirin and beta- blockers. The patient did get Plavix 300 mg in the emergency room yesterday. The patient does have a DNR order. This was discussed with the niece and will be rescinded during the procedure. Further recommendations pending results of her cardiac catheterization. [id number]/[facility] #: [id number] MTDArchie
[2018-02-19] MEDS ORDERED: traZODone TAB* 50 MG TAB PO SCH (18:00)
[2018-02-19] MEDS: Heparin VIAL(*) 5000 UNITS/ML VIAL (FIVE THOUSAND) SUBCUT SCH (22:12)
--- NOTE | 2018-02-20 02:31 | CATH ---
CC: Dr. Conrado Herrmann at [facility]; Dr. Jake Hanson at [facility] * CARDIAC CATHETERIZATION: DATE OF PROCEDURE: 02/19/18 INDICATION FOR PROCEDURE: Non-STEMI, acute coronary syndrome. PROCEDURE: Coronary angiography. INDICATION: The patient is an 87-year-old female with a history of hypertension who came to the emergency room because of chest pain radiating into her left shoulder. The patient's initial EKG was nonspecific. The patient 's initial troponin level was 0.41, her second troponin was 1.5. The patient does have some moderate dementia and her case was discussed with her niece which is the [id number]. Risks and benefits of invasive versus conservative therapy were discussed. They wanted to proceed with invasive evaluation. PROCEDURE IN DETAIL: The patient was brought to the cardiac catheterization lab in a fasting state. Informed consent had been obtained prior to the procedure. All labs had been reviewed. The patient was placed supine on the cath table. Her right wrist was prepped and draped in the usual fashion. 1% lidocaine was used for local anesthesia. The right radial artery was entered by a Seldinger technique and a guidewire was placed. Over the guidewire, a 6- Gambian sheath was placed and a cocktail of nitroglycerin, heparin, and diltiazem was infused. The patient underwent coronary angiography using a 5- Gambian TIG catheter. At the end of the procedure, sheaths and catheters were removed. The patient tolerated the procedure well with no complications. A total of 3.1 minutes of fluoro time was used, a total of 35 cc of Visipaque dye was used. FINDINGS: 1. Left main artery: The left main was normal in size. It bifurcated into the LAD and circumflex. There is no evidence of stenosis. 2. Left anterior descending artery: The LAD was normal in size. It gave off 2 diagonal vessels. They were very tortuous vessels, but there was no evidence of stenosis. 3. Left circumflex artery: The circumflex artery was normal in size. It gave off 2 obtuse marginal branches. There was no evidence of stenosis. 4. Right coronary artery: The RCA was a large dominant vessel. It gave off the PDA. There was a proximal 50% stenosis to the right coronary artery. There was no other significant disease. IMPRESSION: 1. A 50% proximal RCA stenosis. 2. No other coronary artery disease. 3. Successful radial artery cath. RECOMMENDATIONS: The patient will be continued on medical therapy. The patient should get a repeat echocardiogram in 3 to 4 weeks to reevaluate her LV function and mitral regurgitation. [id number]/[facility] #: [id number] MTDD
[2018-02-20] MEDS: Metoprolol Tartrate TAB* 25 MG PO SCH ×2 (03:53→09:15)
[2018-02-20 05:43] LABS: ABS Basophils 0.1 10^3/ul (0-0.2); ABS Eosinophils 0.2 10^3/ul (0-0.6); ABS Lymphocytes 1.6 10^3/ul (1.0-4.8); ABS Monocytes 0.9 10^3/ul (0-0.8); ABS Neutrophils 4.5 10^3/ul (1.5-7.7); ABS Nucleated RBC 0 10^3/ul; Eosinophil % 3.5 % (0-6); Hematocrit 30 % (35-47); Hemoglobin 9.6 g/dl (12.0-16.0); Lymphocyte % 22.2 % (25-47); Mean Corpuscular HGB Conc 32 g/dl (31-36); Mean Corpuscular Hemoglobin 24 pg (27-31); Mean Corpuscular Volume 75 fL (80-97); Mean Platelet Volume 7.9 um3 (7.4-10.4); Nucleated Red Blood Cells % 0; Platelet Count 194 10^3/ul (150-450); Red Blood Count 3.99 10^6/ul (4.0-5.4); Red Cell Distribution Width 18 % (10.5-15); White Blood Count 7.2 10^3/ul (3.5-10.8)
[2018-02-20] MEDS: Heparin VIAL(*) 5000 UNITS/ML VIAL (FIVE THOUSAND) SUBCUT SCH (05:57)
[2018-02-20 06:07] LABS: EGFR Non-African American 63.1 (>60)
[2018-02-20] MEDS ORDERED: Clopidogrel TAB* 75 MG PO SCH (09:00)
[2018-02-20] MEDS: Fluticasone NASAL SPRAY 50MCG* 16 gm SPRAY BTL BOTH NARES SCH (09:15)
[2018-02-20] MEDS: Isosorbide Dinitrate TAB* 20 MG PO SCH (09:15)
[2018-02-20] MEDS: Polyethylene Glycol 3350* 17 GM PACKET PO SCH (09:15)
[2018-02-20] MEDS: Magnesium Oxide TAB* 400 MG PO SCH (09:15)
[2018-02-20] MEDS: Sucralfate TAB* 1 GM PO SCH (09:15)
[2018-02-20] MEDS: Diazepam TAB(*) 5 MG PO SCH (09:15)
[2018-02-20] MEDS: Aspirin 81 mg CHEW TAB* 81 MG TAB.CHEW PO SCH (09:16)
[2018-02-20 12:37] VITALS: BP 134/51
[2018-02-20] MEDS ORDERED: Atorvastatin* 80 MG TAB PO SCH (17:00)
--- NOTE | 2018-02-21 02:58 | DS ---
CC: Dr. Herrmann; Dr. Hanson; Dr. Ward * DISCHARGE SUMMARY: DATE OF ADMISSION: 02/19/18 DATE OF DISCHARGE: 02/20/18 PRIMARY CARE PROVIDER: Dr. Herrmann. WEIGHT LOSS SALES CONSULTANT: Dr. Hanson. CONSULTING WEIGHT LOSS SALES CONSULTANT: Dr. Ward. DISCHARGE DIAGNOSIS: Takotsubo syndrome. SECONDARY DIAGNOSES: 1. Hypertension. 2. Anxiety. 3. Depression. 4. Mild dementia. 5. History of facial shingles. 6. Cordoba's palsy. 7. Gastroesophageal reflux disease. 8. Endometriosis. MEDICATIONS AT THE TIME OF DISCHARGE: 1. Acetaminophen 650 mg p.o. q. 6 hours p.r.n. pain. 2. Artificial tear ointment to both eyes at bedtime. 3. Calcium plus vitamin D one tablet p.o. b.i.d. 4. Biotene dry mouth 2 sprays p.o. q.3 hours p.r.n. dry mouth. 5. Valium 2 mg p.o. b.i.d. 6. Lexapro 15 mg p.o. daily. 7. Fluticasone nasal spray 50 mcg one spray to both nares b.i.d. 8. Guaifenesin 10 mL p.o. q.4 hours p.r.n. cough. 9. Losartan 50 mg p.o. daily. 10. Magnesium oxide 400 mg p.o. daily. 11. Nitroglycerin 0.4 mg sublingual q.5 minutes chest pain. 12. Omeprazole 10 mg p.o. daily. 13. Oxybutynin XL 15 mg p.o. daily. 14. MiraLax 17 g p.o. daily. 15. Refresh tears one drop to both eyes daily. 16. Senna 2 tablets p.o. daily p.r.n. constipation. 17. Sucralfate 1 g p.o. b.i.d. 18. Trazodone 50 mg p.o. q.p.m. 19. Triple paste topical b.i.d. New Medications: 1. Aspirin 81 mg p.o. daily. 2. Metoprolol succinate 25 mg p.o. at bedtime. Nadolol was discontinued at this point as Cardiology recommended metoprolol instead. HOSPITAL COURSE: Ms. Oconnor is an 87-year-old lady with past medical history as stated that presented to the emergency room on 02/19 with complaints of severe left- sided shoulder pain radiating to her left breast. For more details about her presentation, I refer to her history and physical. Her initial troponin was 0.13 and it peaked at 1.55. She had an echocardiogram that showed an ejection fraction of 40-45% with apical septal, apical anterior, apical lateral, and apical inferior wall segments that are hypokinetic. She was seen in consultation by Cardiology (Dr. Ward) and his initial impression was that the patient had a non-ST elevation MO with a peak troponin of 1.5. He discussed the risks and benefits of cardiac cath with the patient's niece and the patient was taken to the cardiac lab where her catheterization revealed 50% proximal RCA stenosis with no other coronary artery disease. At that point, the impression was the patient had Takotsubo cardiomyopathy and his recommendation was for medical management with aspirin and metoprolol and to repeat her echocardiogram in 3 to 4 weeks to re-evaluate her LV function and mitral regurgitation that on this echo was found to have moderate mitral regurgitation. The patient developed mild confusion overnight likely associated with mild the sedation she received for her cath. This morning she appears to be at her baseline asymptomatic and she was thought to be medically stable to be discharged home. Her niece, Janis Adams, was called and updated about her condition and is in agreement to discharge. PHYSICAL EXAMINATION: Vital Signs: Temperature 97.6, heart rate is 64, respiratory rate is 20, oxygen saturation 99% on room air, blood pressure is 148 /73. General: Patient is a pleasant elderly lady, sitting up in chair, in no acute distress, very hard of hearing. CVS: Normal S1 and S2. Regular rate and rhythm. Chest: Breath sounds present bilaterally with no added sounds. Extremities: The right wrist cardiac cath site has no palpable hematoma, has a good pulse, good capillary refill. Neuro: She is alert, awake, and oriented x2 to self and place, able to move all 4 extremities with steady gait with her walker. DIET: Heart healthy diet. ACTIVITIES: As tolerated. DISPOSITION: To home. STATUS WHILE IN THE HOSPITAL: Inpatient. Please keep in mind, this is a summarized version of this patient's hospital stay. If you need more information, please feel free to call me at [phone] or please obtain full medical records. TIME SPENT: Approximately 45 minutes were spent to complete this discharge. [id number]/[facility] #: [id number] [place]
== END 2018-02-20 13:55 | disposition home or self-care (01) | DRG 287 ==
LOC: ED 01:23 → MEDTELE 02:56 → OBSVTOIN 13:56
PROVIDERS: ADMIT Internal Medicine; ATTEND Internal Medicine
PROC: B211YZZ Fluoroscopy of Multiple Coronary Arteries using Other Contrast (ICD-10-PCS; 2018-02-19)
PROC: 4A023N7 Measurement of Cardiac Sampling and Pressure, Left Heart, Percutaneous Approach (ICD-10-PCS; principal; 2018-02-19 14:30)
DX: I51.81 Takotsubo syndrome (principal); I10 Essential (primary) hypertension; F41.9 Anxiety disorder, unspecified; F32.9 Major depressive disorder, single episode, unspecified; F03.90 Unspecified dementia, unspecified severity, without behavioral disturbance, psychotic disturbance, mood disturbance, and anxiety; G51.0 Bell's palsy; K21.9 Gastro-esophageal reflux disease without esophagitis; N80.9 Endometriosis, unspecified; I34.0 Nonrheumatic mitral (valve) insufficiency; Z66 Do not resuscitate; I27.20 Pulmonary hypertension, unspecified; Z79.899 Other long term (current) drug therapy; Z88.1 Allergy status to other antibiotic agents; Z88.5 Allergy status to narcotic agent; Z88.8 Allergy status to other drugs, medicaments and biological substances; Z82.49 Family history of ischemic heart disease and other diseases of the circulatory system
CPT/HCPCS: 36415; 71045; 80053; 80061; 83605; 83735; 83880; 84484; 85025; 85610; 85730; 93005; 93306; 93454; 99156; 99283; A9270-GY; C1887; J1644; J1650; J2250; J3010; J3490

== ENCOUNTER 2019-02-04 21:33 | Inpatient (IN) | payer MEDICARE ==
[2019-02-04] MEDS ORDERED: NS 0.9% 1000 ML** 1,000 ML IV ONE (22:03)
[2019-02-04] MEDS ORDERED: Acetaminophen TAB* 325 MG PO ONE (22:04)
--- NOTE | 2019-02-04 22:11 | ED ---
HPI Febrile Illness - HPI Summary HPI Summary: Pt is an 88 y/o F presenting to the ED brought in by EMS for fever. LEVEL 5 CAVEAT: The pt is unable to give full hx and physical due to AMS. Per EMS, the pt was unable to walk, has a fever, and associated cough. [facility] staff gave the pt Tylenol HELP AID. - History of Current Complaint Chief Complaint: EDAltMentalStatus Time Seen by Provider: 02/04/19 21:56 Hx Obtained From: EMS Hx From Patient Unobtainable Due To: Altered Mental Status Onset/Duration: Started Hours Ago, Still Present Timing: Constant, Lasting Hours Current Severity: None Pain Intensity: 0 Pain Scale Used: 0-10 Numeric Aggravating Factors: Unknown Associated Signs and Symptoms: Altered Mental Status, Cough - Additional Pertinent History Primary Care Physician: B[facility] - Allergy/Home Medications Allergies/Adverse Reactions: Allergies Allergy/AdvReac Type Severity Reaction Status Date / Time amoxicillin [From Augmentin] Allergy Unknown Verified 02/19/18 01:36 Reaction Details carisoprodol [From Soma] Allergy Unknown Verified 02/19/18 01:36 Reaction Details clavulanic acid Allergy Unknown Verified 02/19/18 01:36 [From Augmentin] Reaction Details codeine Allergy Unknown Verified 02/19/18 01:36 Reaction Details lisinopril Allergy Unknown Verified 02/19/18 01:36 Reaction Details moxifloxacin [From Avelox] Allergy Unknown Verified 02/19/18 01:36 Reaction Details Home Medications: Home Medications guaiFENesin [Guaifenesin] 10 ml PO PRN 02/04/19 [History] PMH/Surg Hx/FS Hx/Imm Hx Previously Healthy: No Endocrine/Hematology History: Reports: Hx Anemia, Other Endocrine/Hematological Disorders - Hyponatremia Denies: Hx Diabetes, Hx Thyroid Disease Cardiovascular History: Reports: Hx Angina, Hx Coronary Artery Disease, Hx Hypertension, Other Cardiovascular Problems/Disorders - Chronic Chest pain, 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 Denies: Hx Congestive Heart Failure, Hx Hypercholesterolemia, Hx Myocardial Infarction, Hx Pacemaker/ICD, Hx Valvular Heart Disease Respiratory History: Reports: Hx Chronic Obstructive Pulmonary Disease (COPD) - per CT past admissions Denies: Hx Asthma, Other Respiratory Problems/Disorders GI History: Reports: Hx Gastroesophageal Reflux Disease, Other GI Disorders - endometriosis, hemorrhoids History: Denies: Other Problems/Disorders - frequency Musculoskeletal History: Reports: Hx Back Problems, Other Musculoskeletal History - degen bones, chronic edema Denies: Hx Arthritis, Hx Osteoporosis Sensory History: Reports: Hx Cataracts, Hx Contacts or Glasses, Hx Macular Degeneration, Hx Vision Problem, Hx Hearing Aid, Hx Hearing Problem Denies: Hx Glaucoma Opthamlomology History: Reports: Hx Cataracts, Hx Contacts or Glasses, Hx Macular Degeneration, Hx Vision Problem Denies: Hx Glaucoma Neurological History: Reports: Other Neuro Impairments/Disorders - bells palsy, shingles, confusion, INVASIVE MELANOMA LEFT SIDE OF FACE Denies: Hx Headaches, Hx Seizures, Hx Transient Ischemic Attacks (TIA) Psychiatric History: Reports: Hx Anxiety, Hx Depression, Other Psychiatric Issues/Disorders - Sleep disorders Denies: Hx Panic Disorder - Cancer History Cancer Type, Location and Year: skin CA: invasive melanoma left side of face - Surgical History Surgery Procedure, Year, and Place: Hysterectomy, Left knee, tonsilectomy, apendectomy, bunuons, MELANOMA REMOVED L SIDE OF FACE 2014 DR [place]. 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 Positive: Fever Positive: Cough Positive: Other - unsteady gait Neurological: Other - AMS All Other Systems Reviewed And Are Negative: No Physical Exam - Summary Physical Exam Summary: VITAL SIGNS: Reviewed. GENERAL: Patient is a well-developed and nourished female who is lying comfortable in the stretcher. Patient is not in any acute respiratory distress. HEAD AND FACE: No signs of trauma. No ecchymosis, hematomas or skull depressions. No sinus tenderness. Chronic L facial droop. EYES: PERRLA, EOMI x 2, No injected conjunctiva, no nystagmus. EARS: Hearing grossly intact. Ear canals and tympanic membranes are within normal limits. MOUTH: Oropharynx within normal limits. NECK: Supple, trachea is midline, no adenopathy, no JVD, no carotid bruit, no c- spine tenderness, neck with full ROM. CHEST: Symmetric, no tenderness at palpation LUNGS: Bilateral rhonchi and wheezes. CVS: Regular rate and rhythm, S1 and S2 present, no murmurs or gallops appreciated. ABDOMEN: Soft, non-tender. No signs of distention. No rebound no guarding, and no masses palpated. Bowel sounds are normal. EXTREMITIES: FROM in all major joints, no edema, no cyanosis or clubbing. NEURO: Alert and oriented only to her name. No acute neurological deficits. Speech is normal and follows commands. SKIN: Dry and warm Triage Information Reviewed: Yes Vital Signs On Initial Exam: Initial Vitals Temp Pulse Resp BP Pulse Ox 102.3 F 80 17 132/54 92 02/04/19 21:40 02/04/19 21:40 02/04/19 21:40 02/04/19 21:40 02/04/19 21:40 Vital Signs Reviewed: Yes Completion Of Physical Exam Limited Due To: Altered Mental Status Diagnostics - Vital Signs Vital Signs Temp Pulse Resp BP Pulse Ox 02/04/19 21:40 102.3 F 80 17 132/54 92 - Laboratory Result Diagrams: 02/04/19 22:29 02/04/19 22:29 Lab Statement: Any lab studies that have been ordered have been reviewed, and results considered in the medical decision making process. - Radiology CXR Radiology Interpretation Completed By: ED Physician Summary of Radiographic Findings: Questionable bilateral basilar infiltrate. Pending official radiology report. - CT Chest CT CT Interpretation Completed By: Radiologist Summary of CT Findings: 1. Endobronchial pneumonia right middle and bilateral lower lobes likely due to aspiration. 2. Multiple stable pulmonary nodules which show greater than 2 year stability therefore are benign likely from prior infectious process and per current Fleischner guidelines no followup imaging is recommended. ED physician has reviewed this report. Course/Dx - Course Course Of Treatment: Pt is an 88 y/o F presenting to the ED brought in by EMS for fever. LEVEL 5 CAVEAT: The pt is unable to give full hx and physical due to AMS. Per EMS, the pt was unable to walk, has a fever, and associated cough. [facility] staff gave the pt Tylenol HELP AID. CXR shows questionable bilateral basilar infiltrate, pending official radiology report. The pt is negative for Influenza A & B. The pt's first troponin is 0.05. Chest CT shows: 1. Endobronchial pneumonia right middle and bilateral lower lobes likely due to aspiration. 2. Multiple stable pulmonary nodules which show greater than 2 year stability therefore are benign likely from prior infectious process and per current Fleischner guidelines no followup imaging is recommended. As of 118, I spoke with Dr. Sage about the pt's condition who will be accepting the pt to [facility] [place] with dx including pneumonia and UTI. - Diagnoses Provider Diagnoses: Pneumonia, UTI (urinary tract infection) Discharge - Sign-Out/Discharge Documenting (check all that apply): Patient Departure - Discharge Plan Condition: Stable Disposition: ADMITTED TO [facility] Referrals: Conrado Herrmann MD [Primary Care Provider] - - Attestation Statements Document Initiated by Scribe: Yes Documenting Scribe: Anna Bryant Provider For Whom Scribe is Documenting (Include Credential): Chari Matson MD. Scribe Attestation: Anna Walker, scribed for Chari Matson MD. on 02/05/19 at 0123. Status of Scribe Document: Ready Consult Consult: 011 - Spoke with Dr. Sage about the pt's condition who will be accepting the pt to [facility] with dx including pneumonia and UTI.
[2019-02-04 22:35] LABS: Hematocrit 33 % (33-41); Hemoglobin 10.8 g/dL (12.0-16.0); Mean Corpuscular HGB Conc 32 g/dL (31-36); Mean Corpuscular Hemoglobin 28 pg (27-31); Mean Corpuscular Volume 87 fL (80-97); Mean Platelet Volume 8.2 fL (7.4-10.4); Platelet Count 201 10^3/uL (150-450); Red Blood Count 3.86 10^6 /uL (3.70-4.87); Red Cell Distribution Width 16 % (10.5-15); White Blood Count 12.3 10^3/uL (3.5-10.8)
[2019-02-04 22:45] LABS: Activated Partial Thrombo Time 25.2 seconds (26.0-36.3); INR 1.1 (0.77-1.02)
[2019-02-04 22:52] LABS: ALT 21 U/L (7-52); AST 28 U/L (13-39); Albumin 3.3 g/dL (3.2-5.2); Alkaline Phosphatase 38 U/L (34-104); Anion Gap 7 mmol/L (2-11); BUN/Creatinine Ratio 22.8 (8-20); Blood Urea Nitrogen 28 mg/dL (6-24); CO2 Carbon Dioxide 26 mmol/L (22-32); Chloride 100 mmol/L (101-111); EGFR African American 49.7 (>60); EGFR Non-African American 41.1 (>60); Globulin 3.3 g/dL (2-4); Glucose 134 mg/dL (70-100); Potassium 4.3 mmol/L (3.5-5.0); Sodium 133 mmol/L (135-145); Total Protein 6.6 g/dL (6.4-8.9)
[2019-02-04 22:55] LABS: Troponin I 0.05 ng/mL (<0.04)
[2019-02-04 22:56] LABS: Influenza A Molecular NEGATIVE (Negative); Influenza B Molecular NEGATIVE (Negative)
[2019-02-04 22:59] LABS: ABS Basophils 0.1 10^3/ul (0-0.2); ABS Eosinophils 0 10^3/ul (0-0.6); ABS Lymphocytes 0.8 10^3/ul (1.0-4.8); ABS Monocytes 1.6 10^3/ul (0-0.8); ABS Neutrophils 9.7 10^3/ul (1.5-7.7); ABS Nucleated RBC 0 10^3/ul; Eosinophil % 0.2 %; Lymphocyte % 6.8 %; Nucleated Red Blood Cells % 0
[2019-02-04] MEDS ORDERED: Ibuprofen TAB* 400 MG ONE (23:02)
[2019-02-04] MEDS ORDERED: Ibuprofen TAB* 400 MG PO ONE (23:31)
[2019-02-04 23:48] LABS: Urine Appearance Cloudy; Urine Bacteria Absent (Absent); Urine Bilirubin Negative (Negative); Urine Blood 2+ (Negative); Urine Color Yellow; Urine Glucose Negative (Negative); Urine Ketones Negative (Negative); Urine Nitrite Negative (Negative); Urine Protein 2+(100 mg/dL) (Negative); Urine Red Blood Cell 2+(6-10/hpf) (Absent); Urine Specific Gravity 1.017 (1.010-1.030); Urine Urobilinogen Negative (Negative); Urine White Blood Cell 3+(>20/hpf) (Absent)
[2019-02-05] MEDS ORDERED: Clindamycin 600 MG/D5W BAG(*) 600 MG/50 ML BAG IV ONE (00:30)
[2019-02-05] MEDS ORDERED: Ondansetron INJ* 2 MG/ML VIAL IV PRN (02:19)
[2019-02-05] MEDS ORDERED: Al Hydrox/Mg Hydrox/Simet LIQ* 30 ML UDC PO PRN (02:19)
[2019-02-05] MEDS ORDERED: Senna TAB PO PRN (02:23)
[2019-02-05] MEDS ORDERED: GuaiFENesin DM* 5 ML UDC PO PRN (02:23)
[2019-02-05] MEDS ORDERED: Diazepam TAB(*) 5 MG PO PRN (02:23)
--- NOTE | 2019-02-05 03:59 | HP ---
CC: Conrado Herrmann MD * HISTORY AND PHYSICAL: DATE OF ADMISSION: 02/05/19 TIME OF EVALUATION: 0230 PRIMARY CARE PHYSICIAN: Conrado Herrmann MD CHIEF COMPLAINT: Fever, weakness, and unable to ambulate and cough. HISTORY OF PRESENT ILLNESS: This is an 88-year-old female with past medical history of dementia, who presented from [facility] early this morning for cough, fever, weakness, and unable to ambulate. The patient is unable to participate in the conversation. History is obtained from the records and the ER staff. It is unclear the duration of her symptoms. The patient had labs and imaging. She was given 1 L of normal saline, 400 mg of ibuprofen, 600 mg of clindamycin, and 975 mg of Tylenol and referred to the hospitalist service for further evaluation. The patient wears hearing aids in left ear. PAST MEDICAL HISTORY: 1. Dementia, it is unclear of the severity, but was ambulating prior to admission. 2. History of Takotsubo syndrome with ejection fraction of 40% to 45%. 3. History of hypertension. 4. Anxiety. 5. Depression. 6. History of GERD. 7. History of endometriosis. MEDICATIONS: 1. Nitrostat sublingual as needed. 2. Senna 2 tabs every 24 hours as needed for constipation. 3. Tylenol 650 mg every 6 hours as needed. 4. Losartan 50 mg p.o. daily. 5. Magnesium oxide 400 mg p.o. daily. 6. Metoprolol succinate 25 mg daily. 7. Omeprazole 20 mg daily. 8. Oxybutynin ER extended release 15 mg p.o. daily. 9. Chlorhexidine swish in mouth and spit daily. 10. MiraLax 1 pack daily. 11. Trazodone 50 mg at bedtime. 12. Ensure b.i.d. p.r.n. 13. Flonase 1 spray each nostril daily. 14. Calcium and vitamin D3 b.i.d. 15. Sucralfate 1 g b.i.d. 16. Refresh liquid gel 1% one drop in right eye 3 times a day. 17. Robitussin 10 cc as needed for cough. 18. Biotene mouth solution 2 sprays 4 times a day for dry mouth. 19. Calmoseptine ointment apply to buttocks 4 times a day. 20. Diazepam 2 mg every 6 hours as needed for anxiety. 21. Ketoconazole gel every 12 hours. 22. Aspirin 81 mg daily. 23. Lexapro 15 mg daily. ALLERGIES: AMOXICILLIN, SOMA, CLAVULANIC, CODEINE, LISINOPRIL, MOXIFLOXACIN. FAMILY HISTORY: Unable to obtain. SOCIAL HISTORY: As mentioned, the patient resides at [facility] [place]. She is DNR, only the first page is filled out. Her niece, Janis Ashley, [phone], is her health care proxy. REVIEW OF SYSTEMS: Unable to obtain. PHYSICAL EXAMINATION GENERAL: The patient is sleeping, awakes to gentle stimulation, and grunts. No meaningful interaction able to be elicited. VITAL SIGNS: Temp T-max 102.3, pulse rate 59, respiratory rate 14, oxygen saturation 94% on room air, blood pressure 120/60. HEENT: Head: Normocephalic. Pupils are reactive, anicteric. Oropharynx: Mucous membranes dry. NECK: Supple. No lymphadenopathy. RESPIRATORY: Poor respiratory effort. No wheeze, rhonchi, or rales. No increased work of breathing. CARDIAC: Bradycardia with ectopic beats with soft systolic murmur heard throughout. ABDOMEN: Soft, nontender. EXTREMITIES: No clubbing, cyanosis, or edema. NEUROLOGIC: The patient as mentioned awakes to tactile stimuli, but unable to verbalize or follow any commands. Moving all extremities. LABORATORY DATA: White count 12.3, hemoglobin 10.8, hematocrit 33, platelets 201. INR is 1.10. Sodium 133, potassium 4.3, chloride 100, bicarb 26, BUN 28, creatinine 1.23, glucose 134. Troponin 0.05. UA shows absent bacteria, white cells, red cells. Flu is negative. RADIOGRAPHIC DATA: Chest CT showed endobronchial pneumonia, right middle and bilateral lower lobes likely due to aspiration, multiple stable pulmonary nodules which show greater than 2-year stability. ASSESSMENT: This is an 88-year-old female with past medical history of dementia , who presented to the emergency room with fever and cough, found to have aspiration pneumonia. 1. Cough and fever: Assessment: The patient's findings are most consistent with aspiration pneumonia. I suspect her urine is pyuria and not truly urinary tract infection. With her dementia, I expect she is progressing and now has dysphagia. Plan: We will admit her to [facility]. Agree with continuing her on clindamycin. We will keep her n.p.o. and have Speech Therapy evaluate her for swallow evaluation. If she does not pass her swallow, recommend goals of care being readdressed and patient would then be eligible for hospice if she does not pass her bedside swallow. In the setting of acute illness, may need to repeat the swallow evaluation. 2. Acute kidney injury: I suspect this is prerenal azotemia in the setting of infectious etiology. Mucous membranes are dry. Plan: We will continue her on IV fluids and hold her losartan and repeat her labs in the morning. 3. Chronic medical problems: We will continue her home medications as prescribed with the exception of losartan. We will also hold her metoprolol as the patient has bradycardia with frequent dips down into the 40s during my encounter. Also going to give her lower Lexapro dose of 10 mg as recommended for max dose of 10 mg in the elderly population. 4. FEN: As mentioned n.p.o. with IV fluids in the setting of aspiration. Needs a swallow eval before advancing her diet. 5. DVT prophylaxis: The patient scores high risk. We will place her on heparin subcu t.i.d. 6. Code status: She is a DNR. Her second page of our MOLST form is not filled out, so she needs a new MOLST in contact of her health care proxy to confirm this. Her first page shows that she is a DNR. PATIENT TIME: Greater than 45 minutes was spent doing the history and physical ; more than half the time was spent in direct patient contact. [id number]/OMEGA #: [id number] [place]
[2019-02-05] MEDS: NS 0.9% 1000 ML** 1,000 ML IV SCH ×2 (04:19→15:42)
[2019-02-05] MEDS: Heparin VIAL(*) 5000 UNITS/ML VIAL (FIVE THOUSAND) SUBCUT SCH ×3 (06:13→20:09)
[2019-02-05] MEDS: Sucralfate TAB* 1 GM PO SCH ×2 (06:13→16:30)
[2019-02-05] MEDS ORDERED: Clindamycin 600 MG/D5W BAG(*) 600 MG/50 ML BAG IV SCH (08:00)
[2019-02-05] MEDS: Calcium/Vitamin D TAB 250/125* TAB PO SCH ×2 (08:28→20:26)
[2019-02-05] MEDS: Oxybutynin XL TAB* 5 MG PO SCH (08:28)
[2019-02-05] MEDS: Pantoprazole TAB * 40 MG TAB PO SCH (08:28)
[2019-02-05] MEDS: Magnesium Oxide TAB* 400 MG PO SCH (08:28)
[2019-02-05] MEDS: Aspirin EC TAB* 81 MG TAB.EC PO SCH (08:28)
[2019-02-05] MEDS: Polyethylene Glycol 3350* 17 GM PACKET PO SCH (08:28)
[2019-02-05 08:37] LABS: ABS Basophils 0 10^3/ul (0-0.2); ABS Eosinophils 0.1 10^3/ul (0-0.6); ABS Monocytes 0.5 10^3/ul (0-0.8); ABS Neutrophils 7.8 10^3/ul (1.5-7.7); ABS Nucleated RBC 0 10^3/ul; Eosinophil % 0.7 %; Hematocrit 34 % (33-41); Hemoglobin 10.9 g/dL (12.0-16.0); Mean Corpuscular HGB Conc 33 g/dL (31-36); Mean Corpuscular Hemoglobin 28 pg (27-31); Mean Corpuscular Volume 87 fL (80-97); Mean Platelet Volume 8.3 fL (7.4-10.4); Nucleated Red Blood Cells % 0; Platelet Count 181 10^3/uL (150-450); Red Blood Count 3.85 10^6 /uL (3.70-4.87); Red Cell Distribution Width 16 % (10.5-15); White Blood Count 9.5 10^3/uL (3.5-10.8)
[2019-02-05] MEDS: ZINC OXIDE 12.8% (TOPICAL) 60 GM TUBE TOPICAL SCH ×2 (08:45→20:07)
[2019-02-05] MEDS: Fluticasone NASAL SPRAY 50MCG* 16 gm SPRAY BTL BOTH NARES SCH ×2 (08:46→20:09)
[2019-02-05] MEDS: Polyethyl Glycol/Propylene Gly OPHTH.SOLN BOTH EYES SCH (08:46)
[2019-02-05 08:58] LABS: BUN/Creatinine Ratio 22.8 (8-20); EGFR African American 54.3 (>60); EGFR Non-African American 44.9 (>60); Potassium 4.3 mmol/L (3.5-5.0)
[2019-02-05 09:03] LABS: Troponin I 0.04 ng/mL (<0.04)
[2019-02-05] MEDS ORDERED: Acetaminophen SUPP* 650 MG SUPP PR PRN (10:36)
--- NOTE | 2019-02-05 13:05 | PN ---
Hospitalist Progress Note Date of Service: 02/05/19 HOSPITALIST ADDENDUM Case reviewed and d/w Ayla Mccloud [employer] ARCHITECT. Patient presents with sepsis. Initially source was thought to be pulmonary, but blood cultures are growing Gram negative bacilli - suspect urinary source too. Considering her multiple allergies will d/c Clindamycin and start Cefepime. Consult ID.
[2019-02-05] MEDS ORDERED: Cefepime 2 GM in Dextrose(*) 2 GM/50 ML BAG IV SCH (14:00)
--- NOTE | 2019-02-05 15:07 | CONS ---
CONSULTATION REPORT: DATE OF CONSULT: 02/05/19 REQUESTING PROVIDER: Marisa Mccloud NP. CONSULTING SERVICE: Infectious Disease. REASON FOR CONSULT: Bacteremia. IMPRESSION: 1. Gram-negative bacilli in 11/06 blood culture bottles in the setting of fever, cough, and weakness. Her urinalysis shows blood, leukocyte esterase, white cells. She cannot really delineate if she has urinary symptoms or not. She could have urinary tract infection. She was found to have an aspiration pneumonia and the chest CT is reported out as right middle and lower lobe infiltrates, which I do not see much evidence of when I reviewed the CT scan. I think that is less likely, particularly now it is gram negative in the blood; however, it may yet proved to be. She does not have other focal signs or symptoms or prosthetic material present or abdominal tenderness including right upper quadrant. 2. Dementia. 3. History of takotsubo cardiomyopathy, ejection fraction of 40 to 45%. 4. Allergies to AMOXICILLIN and MOXIFLOXACIN. RECOMMENDATIONS: Continue cefepime. We will decrease it to 1 g every 12 hours. Await the organism speciation in the blood, which will give us some more clues as to where it came from. HISTORY OF PRESENT ILLNESS: This is an 88-year-old woman who lives at [place]. She has some dementia, cannot provide much of the history of her illness which are obtained instead from review of the medical records and discussing with the nursing staff. She had developed fever and weakness, though was brought to the ER yesterday. Chest x-ray showed upper lobe prominent interstitial markings and then minimal bibasilar pulmonary opacities. She was febrile at 39 degrees. She was started on clindamycin. Urinalysis was sent and came back as above. Blood sent 1 of 2 growing gram-negative therese. Urine culture is pending. Influenza PCR was negative. Today, she has some lower abdominal discomfort that she will not call pain but no other focal signs or symptoms, although she does have cough which is nonproductive. She is not requiring supplemental oxygen and she had a fever this morning at 38.5. She has been hemodynamically stable. PAST MEDICAL HISTORY: 1. Dementia. 2. Takotsubo cardiomyopathy. 3. Hypertension. 4. Anxiety. 5. Depression. 6. Gastroesophageal reflux disease. 7. History of endometriosis. MEDICATIONS: 1. Tylenol. 2. Aspirin. 3. Calcium and vitamin D. 4. Cefepime 2 g every 12 hours. 5. Fluticasone nasal spray. 6. Diazepam as needed. 7. Guaifenesin. 8. Heparin subcutaneous injection. 9. Ibuprofen. 10. Metoprolol. 11. Oxybutynin. 12. Pantoprazole. 13. Senna. 14. Sucralfate. 15. Trazodone. ALLERGIES: 1. AUGMENTIN. 2. MOXIFLOXACIN. 3. SOMA. 4. CODEINE. 5. LISINOPRIL. FAMILY HISTORY: Unobtainable. SOCIAL HISTORY: She lives in [place]. She is a nonsmoker. REVIEW OF SYSTEMS: Unobtainable given her baseline mental status. PHYSICAL EXAM: Vital Signs: Temperature 38.5 this morning, heart rate 70, respiratory rate 18, blood pressure 130/93, oxygen saturations 94% on room air. General: She is awake, not in distress. Neurologic: She answered some questions. She is hard of hearing. She follows command. She has a right facial droop. HEENT: There is no conjunctival hemorrhage. Oropharynx without lesions. Mucous membranes are dry. Neck: Supple without mass. Heart: Regular rate and rhythm without murmurs, rubs, or gallops. Lungs: Clear to auscultation bilaterally. Abdomen: Soft, nontender, and nondistended. Bowel sounds present. There is no flank tenderness or suprapubic tenderness to palpation. Skin: There are no rashes or splinter hemorrhages. Musculoskeletal : There is no spinal tenderness to palpation. DIAGNOSTIC STUDIES/LAB DATA: White blood cell count 9, hemoglobin 10.9, and platelets 151. Creatinine 1.1. Please see impression and recommendations outlined above. Thank your for asking me to see Ms. Oconnor in consultation. [id number]/CPS #: [id number] [place]
--- NOTE | 2019-02-05 17:11 | PN ---
Subjective Date of Service: 02/05/19 Interval History: RN reports patient "cannot get warm" and is shivering in bed. This bid writer to bed to assess patient. Patient visibly shaking and covered in blankets. Alert to self only. Limited engagement in ROS, but denies pain and shortness of breath. Occasional cough noted during assessment. STAT order placed for lactic, blood cultures, and rectal temp. Objective Active Medications: Acetaminophen (Tylenol Tab*) 650 mg PO Q4H PRN PRN Reason: FEVER/PAIN Acetaminophen (Tylenol Supp*) 650 mg IA Q4H PRN PRN Reason: FEVER/PAIN Last Admin: 02/05/19 11:14 Dose: 650 mg Al Hydrox/Mg Hydrox/Simethicone (Maalox Plus*) 30 ml PO Q6H PRN PRN Reason: INDIGESTION Aspirin (Aspirin Ec Tab*) 81 mg PO DAILY [facility] Last Admin: 02/05/19 08:28 Dose: Not Given Calcium/Vitamin D (Oscal D Tab 250/125*) 1 tab PO BID [facility] Last Admin: 02/05/19 08:28 Dose: Not Given Carboxymethylcellulose/Glycerin (Refresh Optive Gel Eye Gel) 1 applic BOTH EYES QPM [facility] Diazepam (Valium Tab(*)) 2.5 mg PO Q6H PRN PRN Reason: ANXIETY Fluticasone Propionate (Flonase Nasal [place] 50mcg*) 1 spray BOTH NARES BID [facility] Last Admin: 02/05/19 08:46 Dose: 1 spray Guaifenesin/Dextromethorphan (Robitussin Dm*) 10 ml PO Q4H PRN PRN Reason: COUGH Heparin Sodium (Porcine) (Heparin Vial(*)) 5,000 units SUBCUT Q8HR [facility] Last Admin: 02/05/19 13:51 Dose: 5,000 units Sodium Chloride (Ns 0.9% 1000 Ml) 1,000 mls @ 100 mls/hr IV PER RATE [facility] Last Admin: 02/05/19 15:42 Dose: 100 mls/hr Cefepime HCl (Maxipime 1 Gm In Dextrose Duplex (*)) 1 gm in 50 mls @ 100 mls/ hr IV Q12H [facility] Magnesium Oxide (Magox 400 Tab*) 400 mg PO DAILY [facility] Last Admin: 02/05/19 08:28 Dose: Not Given Metoprolol Succinate (Toprol Xl Tab*) 12.5 mg PO BEDTIME [facility] Ondansetron HCl (Zofran Inj*) 4 mg IV Q4H PRN PRN Reason: NAUSEA/VOMITING Oxybutynin Chloride (Ditropan Xl Tab*) 15 mg PO DAILY [facility] Last Admin: 02/05/19 08:28 Dose: Not Given Pantoprazole Sodium (Protonix Tab*) 40 mg PO DAILY [facility] Last Admin: 02/05/19 08:28 Dose: Not Given Polyethyl Glycol/Propylene Glycol (Lubricant Eye Drops) 1 drop BOTH EYES DAILY [facility] Last Admin: 02/05/19 08:46 Dose: 1 drop Polyethylene Glycol/Electrolytes (Miralax*) 17 gm PO DAILY [facility] Last Admin: 02/05/19 08:28 Dose: Not Given Senna (Senokot Tab*) 2 tab PO DAILY PRN PRN Reason: CONSTIPATION Sucralfate (Carafate*) 1 gm PO BID AC [facility] Last Admin: 02/05/19 16:30 Dose: Not Given Trazodone HCl (Desyrel Tab*) 50 mg PO QPM [facility] Zinc Oxide (Triple Paste 12.8% (Topical)) 1 applic TOPICAL BID [facility] Last Admin: 02/05/19 08:45 Dose: 1 applic Vital Signs - 8 hr 02/05/19 02/05/19 02/05/19 09:34 10:26 13:43 Temperature 101.3 F 99.0 F Pulse Rate 67 71 Respiratory 16 Rate Blood Pressure 122/42 (mmHg) O2 Sat by Pulse 92 97 Oximetry 02/05/19 02/05/19 15:17 15:22 Temperature 97.6 F Pulse Rate 56 Respiratory 18 Rate Blood Pressure 111/38 114/38 (mmHg) O2 Sat by Pulse 95 Oximetry Oxygen Devices in Use Now: None Appearance: Shivering, NAD Eyes: No Scleral Icterus Ears/Nose/Mouth/Throat: Clear Oropharnyx, Mucous Membranes Moist Neck: NL Appearance and Movements; NL JVP Respiratory: Symmetrical Chest Expansion and Respiratory Effort, Clear to Auscultation Cardiovascular: NL Sounds; No Murmurs; No JVD, RRR, No Edema Abdominal: NL Sounds; No Tenderness; No Distention Lymphatic: No Cervical Adenopathy Extremities: No Clubbing, Cyanosis Skin: No Rash or Ulcers Neurological: - - Alert to self only. Nutrition: - - NPO pending swallow evaluation Result Diagrams: 02/05/19 08:27 02/05/19 08:27 Additional Lab and Data: Laboratory Results - last 24 hr 02/04/19 02/04/19 02/04/19 22:29 22:29 22:29 WBC 12.3 H RBC 3.86 Hgb 10.8 L Hct 33 MCV 87 MCH 28 MCHC 32 RDW 16 H Plt Count 201 MPV 8.2 Neut % (Auto) 78.8 Lymph % (Auto) 6.8 [place] % (Auto) 13.0 Eos % (Auto) 0.2 Baso % (Auto) 1.2 Absolute Neuts (auto) 9.7 H Absolute Lymphs (auto) 0.8 L Absolute Monos (auto) 1.6 H Absolute Eos (auto) 0 Absolute Basos (auto) 0.1 Absolute Nucleated RBC 0 Nucleated RBC % 0 INR (Anticoag Therapy) 1.10 H APTT 25.2 L Sodium 133 L Potassium 4.3 Chloride 100 L Carbon Dioxide 26 Anion Gap 7 BUN 28 H Creatinine 1.23 H Est GFR ( Amer) 49.7 Est GFR (Non-Af Amer) 41.1 BUN/Creatinine Ratio 22.8 H Glucose 134 H Lactic Acid Calcium 10.0 Total Bilirubin 0.40 AST 28 ALT 21 Alkaline Phosphatase 38 Troponin I 0.05 H* Total Protein 6.6 Albumin 3.3 Globulin 3.3 Albumin/Globulin Ratio 1.0 Urine Color Urine Appearance Urine pH Ur Specific [place] Urine Protein Urine Ketones Urine Blood Urine Nitrate Urine Bilirubin Urine Urobilinogen Ur Leukocyte Esterase Urine WBC (Auto) Urine RBC (Auto) Urine Bacteria Urine Glucose Urine Ascorbic Acid Influenza A (Rapid) Influenza B (Rapid) 02/04/19 02/04/19 02/04/19 22:29 22:44 23:27 WBC RBC Hgb Hct MCV MCH MCHC RDW Plt Count MPV Neut % (Auto) Lymph % (Auto) [place] % (Auto) Eos % (Auto) Baso % (Auto) Absolute Neuts (auto) Absolute Lymphs (auto) Absolute Monos (auto) Absolute Eos (auto) Absolute Basos (auto) Absolute Nucleated RBC Nucleated RBC % INR (Anticoag Therapy) APTT Sodium Potassium Chloride Carbon Dioxide Anion Gap BUN Creatinine Est GFR ( Amer) Est GFR (Non-Af Amer) BUN/Creatinine Ratio Glucose Lactic Acid 1.3 Calcium Total Bilirubin AST ALT Alkaline Phosphatase Troponin I Total Protein Albumin Globulin Albumin/Globulin Ratio Urine Color Yellow Urine Appearance Cloudy Urine pH 5.0 Ur Specific [place] 1.017 Urine Protein 2+(100 mg/dl) A Urine Ketones Negative Urine Blood 2+ A Urine Nitrate Negative Urine Bilirubin Negative Urine Urobilinogen Negative Ur Leukocyte Esterase 3+ A Urine WBC (Auto) 3+(>20/hpf) A Urine RBC (Auto) 2+(6-10/hpf) A Urine Bacteria Absent Urine Glucose Negative Urine Ascorbic Acid * A Influenza A (Rapid) Negative Influenza B (Rapid) Negative 02/05/19 02/05/19 02/05/19 01:24 08:27 08:27 WBC 9.5 RBC 3.85 Hgb 10.9 L Hct 34 MCV 87 MCH 28 MCHC 33 RDW 16 H Plt Count 181 MPV 8.3 Neut % (Auto) 82.4 Lymph % (Auto) 11.0 [place] % (Auto) 5.6 Eos % (Auto) 0.7 Baso % (Auto) 0.3 Absolute Neuts (auto) 7.8 H Absolute Lymphs (auto) 1.0 Absolute Monos (auto) 0.5 Absolute Eos (auto) 0.1 Absolute Basos (auto) 0 Absolute Nucleated RBC 0 Nucleated RBC % 0 INR (Anticoag Therapy) APTT Sodium 137 Potassium 4.3 Chloride 106 Carbon Dioxide 24 Anion Gap 7 BUN 26 H Creatinine 1.14 H Est GFR ( Amer) 54.3 Est GFR (Non-Af Amer) 44.9 BUN/Creatinine Ratio 22.8 H Glucose 125 H Lactic Acid 0.5 Calcium 9.0 Total Bilirubin AST ALT Alkaline Phosphatase Troponin I 0.04 H* Total Protein Albumin Globulin Albumin/Globulin Ratio Urine Color Urine Appearance Urine pH Ur Specific [place] Urine Protein Urine Ketones Urine Blood Urine Nitrate Urine Bilirubin Urine Urobilinogen Ur Leukocyte Esterase Urine WBC (Auto) Urine RBC (Auto) Urine Bacteria Urine Glucose Urine Ascorbic Acid Influenza A (Rapid) Influenza B (Rapid) 02/05/19 11:31 WBC RBC Hgb Hct MCV MCH MCHC RDW Plt Count MPV Neut % (Auto) Lymph % (Auto) [place] % (Auto) Eos % (Auto) Baso % (Auto) Absolute Neuts (auto) Absolute Lymphs (auto) Absolute Monos (auto) Absolute Eos (auto) Absolute Basos (auto) Absolute Nucleated RBC Nucleated RBC % INR (Anticoag Therapy) APTT Sodium Potassium Chloride Carbon Dioxide Anion Gap BUN Creatinine Est GFR ( Amer) Est GFR (Non-Af Amer) BUN/Creatinine Ratio Glucose Lactic Acid 1.5 Calcium Total Bilirubin AST ALT Alkaline Phosphatase Troponin I Total Protein Albumin Globulin Albumin/Globulin Ratio Urine Color Urine Appearance Urine pH Ur Specific [place] Urine Protein Urine Ketones Urine Blood Urine Nitrate Urine Bilirubin Urine Urobilinogen Ur Leukocyte Esterase Urine WBC (Auto) Urine RBC (Auto) Urine Bacteria Urine Glucose Urine Ascorbic Acid Influenza A (Rapid) Influenza B (Rapid) Microbiology and Other Data: Microbiology 02/04/19 23:10 Blood Venous Aerobic Blood Culture - Preliminary 02/04/19 22:29 Blood Venous Aerobic Blood Culture - Preliminary 02/04/19 22:29 Blood Venous Anaerobic Blood Culture - Preliminary 02/05/19 07:13 Nasal Nasal Screen MRSA (PCR) - Final Mrsa Not Detected 02/04/19 21:47 Nasal Influenza Types A,B Antigen - Final Specimen received for Influenza A/B Molecular testing Assess/Plan/Problems-Billing Assessment: 88 yr old female with pmh dementia, takotsubo, htn, anxiety/depression, gerd; who presented to ED this with cough, fever and weakness - Patient Problems (1) Sepsis Comment: - Met sepsis on admission. Received bolus, abx (Clindamycin), and [place] cultured. - Had fever and chills this afternoon, therefore, blood cultures obtained which revealed gram negative. Clindamycin discontinued and Cefepime started. ID consulted and recommended continuing Cefepime until cultures further result for source. (2) Pneumonia Comment: - CT consistent with aspiration pneumonia - Cont Cefepime. (3) Dementia Comment: - Supportive care (4) Altered mental status, unspecified Comment: - Suspected secondary to dementia and acute illness (5) Depression Comment: - Cont Lexapro at lower dose given advanced age. (6) HTN (hypertension) Comment: - Cont to hold losartan given elevated creatinine and acute illness - Cont Metoprolol at lower dose with holding parameters (7) DVT prophylaxis Comment: - HSQ Status and Disposition: Inpatient. Return to SNF when medically stable. Attending: Nallely Arellano
[2019-02-05] MEDS: Carboxymethylcellulose/Glyceri 10 ML OPHTH.GEL lubricant eye gel BOTH EYES SCH (17:30)
[2019-02-05] MEDS: traZODone TAB* 50 MG TAB PO SCH (18:16)
[2019-02-05] MEDS ORDERED: Albuterol 2.5 MG/3 ML NEB.SOL* (0.083%) INH SCH (19:00)
[2019-02-05] MEDS: Metoprolol Succinate XL TAB* 25 MG PO SCH (20:09)
[2019-02-05] MEDS ORDERED: Albuterol 2.5 MG/3 ML NEB.SOL* (0.083%) INH PRN (23:40)
[2019-02-06] MEDS: Cefepime 1 GM in Dextrose(*) 1 GM/50 ML BAG IV SCH ×2 (02:00→14:31)
[2019-02-06] MEDS: NS 0.9% 1000 ML** 1,000 ML IV SCH ×2 (04:49→14:33)
[2019-02-06] MEDS: Heparin VIAL(*) 5000 UNITS/ML VIAL (FIVE THOUSAND) SUBCUT SCH ×3 (05:44→21:37)
[2019-02-06] MEDS: Magnesium Oxide TAB* 400 MG PO SCH (08:44)
[2019-02-06] MEDS: Calcium/Vitamin D TAB 250/125* TAB PO SCH ×2 (08:44→21:33)
[2019-02-06] MEDS: Oxybutynin XL TAB* 5 MG PO SCH (08:44)
[2019-02-06] MEDS: Sucralfate TAB* 1 GM PO SCH ×2 (08:44→18:06)
[2019-02-06] MEDS: Aspirin EC TAB* 81 MG TAB.EC PO SCH (08:44)
[2019-02-06] MEDS: Pantoprazole TAB * 40 MG TAB PO SCH (08:44)
[2019-02-06] MEDS: Polyethylene Glycol 3350* 17 GM PACKET PO SCH (08:45)
[2019-02-06 09:07] LABS: ABS Basophils 0 10^3/ul (0-0.2); ABS Eosinophils 0 10^3/ul (0-0.6); ABS Lymphocytes 1.1 10^3/ul (1.0-4.8); ABS Monocytes 0.8 10^3/ul (0-0.8); ABS Neutrophils 9.1 10^3/ul (1.5-7.7); ABS Nucleated RBC 0 10^3/ul; Eosinophil % 0.1 %; Hematocrit 29 % (33-41); Hemoglobin 9.7 g/dL (12.0-16.0); Lymphocyte % 10.3 %; Mean Corpuscular HGB Conc 33 g/dL (31-36); Mean Corpuscular Hemoglobin 28 pg (27-31); Mean Corpuscular Volume 86 fL (80-97); Mean Platelet Volume 8.3 fL (7.4-10.4); Nucleated Red Blood Cells % 0; Platelet Count 188 10^3/uL (150-450); Red Blood Count 3.41 10^6 /uL (3.70-4.87); Red Cell Distribution Width 16 % (10.5-15)
[2019-02-06 09:20] LABS: Calcium 8.6 mg/dL (8.6-10.3); EGFR Non-African American 55.4 (>60); Potassium 3.8 mmol/L (3.5-5.0)
--- NOTE | 2019-02-06 09:33 | PN ---
Progress Note - Progress Note Date of Service: 02/06/19 SOAP: Subjective: CC: E. coli bacteremia HPI: Ms. Oconnor is an 88 yo female with PMH significant for dementia, HTN, anxiety, Takotsubo cardiomyopathy, depression and GERD. Due to dementia, unable to really provide a ROS due to dementia. She reports abdominal pain when coughing. She is noted to have an occasional productive cough with thick green sputum. Objective: Vital Signs 02/06/19 08:40 Temperature 98.5 F Temperature Temporal Artery Source Scan Pulse Rate 72 Respiratory 16 Rate Blood Pressure 156/51 (mmHg) Blood Pressure 86 Mean O2 Sat by Pulse 98 Oximetry Patient on Room Yes Air Physical Exam: General: Awake, no acute distress Neurological: Alert and Oriented to person Cardiovascular: Heart rate regular, no murmur Respiratory: Lung sounds clear, bilateral Abdominal: Bowel sounds present, ABD soft, non distended, diffuse tenderness Skin: No rashes or abnormalities seen on the exposed skin Laboratory Tests 02/04/19 02/06/19 02/06/19 22:44 08:42 08:42 WBC 11.0 H Hgb 9.7 L Hct 29 L Plt Count 188 Sodium 142 Potassium 3.8 Chloride 114 H Carbon Dioxide 20 L BUN 19 Creatinine 0.95 Glucose 108 H Influenza A (Rapid) Negative Influenza B (Rapid) Negative Microbiology 02/05/19 07:13 Nasal Nasal Screen MRSA (PCR) - Final [place] Not Detected 02/04/19 21:47 Nasal Influenza Types A,B Antigen - Final Specimen received for Influenza A/B Molecular testing 02/05/19 14:12 Blood Venous Anaerobic Blood Culture - Preliminary 02/05/19 11:31 Blood Venous Aerobic Blood Culture - Preliminary 02/05/19 11:31 Blood Venous Anaerobic Blood Culture - Preliminary Escherichia Coli Escherichia Coli 02/04/19 23:10 Blood Venous Aerobic Blood Culture - Preliminary 02/04/19 23:10 Blood Venous Anaerobic Blood Culture - Preliminary Escherichia Coli No Growth Day 1 02/04/19 22:29 Blood Venous Aerobic Blood Culture - Preliminary 02/04/19 22:29 Blood Venous Anaerobic Blood Culture - Preliminary Escherichia Coli Escherichia Coli Assessment: 1. E. coli bacteremia. Blood cultures on 02/04/19 with 3/4 bottles positive for e. coli. Repeat blood cultures on with 02/05/19 with preliminary results showing 2 /4 bottles positive for e. coli. Afebrile for almost 24 hours. Mild leukocytosis. Unable to report urinary symptoms. Reports generalized abdominal pain today. Urine cultures pending. Suspect the source is urine. 2. Acute Kidney Injury. Resolved 3. Dementia. 4. AMOXICILLIN and MOXIFOLXACIN allergies. Plan: Continue cefepime while await sensitivities and urine culture results. Will get a renal/bladder ultrasound to eval for pyelonephritis or renal calculi. Can also consider GB/abdominal imaging if urine culture is negative to eval for a GI source.
[2019-02-06] MEDS: Fluticasone NASAL SPRAY 50MCG* 16 gm SPRAY BTL BOTH NARES SCH ×2 (10:06→21:37)
[2019-02-06] MEDS: ZINC OXIDE 12.8% (TOPICAL) 60 GM TUBE TOPICAL SCH ×2 (10:06→21:39)
[2019-02-06] MEDS: Polyethyl Glycol/Propylene Gly OPHTH.SOLN BOTH EYES SCH (10:06)
--- NOTE | 2019-02-06 14:57 | PN ---
Subjective Date of Service: 02/06/19 Interval History: Received call from ed case manager that family and speech therapy were at bedside. Discussed assessment with [facility] Therapy. Patient can have mechanical ground, thin liquids and may use straw. She should be in the up right position for eating/drinking. Discussed bacteremia and treatment with family. Patient assessed and is much more alert and engaging in ROS and exam today. Reports she continues to feel weak, but denies abd pain, urinary symptoms, nausea, vomiting, cp, sob, palpitations, chills. Objective Active Medications: Acetaminophen (Tylenol Tab*) 650 mg PO Q4H PRN PRN Reason: FEVER/PAIN Acetaminophen (Tylenol Supp*) 650 mg AL Q4H PRN PRN Reason: FEVER/PAIN Last Admin: 02/05/19 11:14 Dose: 650 mg Al Hydrox/Mg Hydrox/Simethicone (Maalox Plus*) 30 ml PO Q6H PRN PRN Reason: INDIGESTION Albuterol (Ventolin 2.5 Mg/3 Ml Neb.Cassie*) 2.5 mg INH Q4H PRN PRN Reason: SOB/WHEEZING Aspirin (Aspirin Ec Tab*) 81 mg PO DAILY [facility] Last Admin: 02/06/19 08:44 Dose: 81 mg Calcium/Vitamin D (Oscal D Tab 250/125*) 1 tab PO BID [facility] Last Admin: 02/06/19 08:44 Dose: Not Given Carboxymethylcellulose/Glycerin (Refresh Optive Gel Eye Gel) 1 applic BOTH EYES QPM [facility] Last Admin: 02/05/19 17:30 Dose: 1 applic Diazepam (Valium Tab(*)) 2.5 mg PO Q6H PRN PRN Reason: ANXIETY Last Admin: 02/06/19 14:23 Dose: 2.5 mg Fluticasone Propionate (Flonase Nasal [place] 50mcg*) 1 spray BOTH NARES BID [facility] Last Admin: 02/06/19 10:06 Dose: 1 spray Guaifenesin/Dextromethorphan (Robitussin Dm*) 10 ml PO Q4H PRN PRN Reason: COUGH Heparin Sodium (Porcine) (Heparin Vial(*)) 5,000 units SUBCUT Q8HR [facility] Last Admin: 02/06/19 14:28 Dose: 5,000 units Sodium Chloride (Ns 0.9% 1000 Ml) 1,000 mls @ 100 mls/hr IV PER RATE [facility] Last Admin: 02/06/19 14:33 Dose: 100 mls/hr Cefepime HCl (Maxipime 1 Gm In Dextrose Duplex (*)) 1 gm in 50 mls @ 100 mls/ hr IV Q12H [facility] Last Admin: 02/06/19 14:31 Dose: 100 mls/hr Magnesium Oxide (Magox 400 Tab*) 400 mg PO DAILY [facility] Last Admin: 02/06/19 08:44 Dose: Not Given Metoprolol Succinate (Toprol Xl Tab*) 12.5 mg PO BEDTIME [facility] Last Admin: 02/05/19 20:09 Dose: Not Given Ondansetron HCl (Zofran Inj*) 4 mg IV Q4H PRN PRN Reason: NAUSEA/VOMITING Oxybutynin Chloride (Ditropan Xl Tab*) 15 mg PO DAILY [facility] Last Admin: 02/06/19 08:44 Dose: Not Given Pantoprazole Sodium (Protonix Tab*) 40 mg PO DAILY [facility] Last Admin: 02/06/19 08:44 Dose: 40 mg Polyethyl Glycol/Propylene Glycol (Lubricant Eye Drops) 1 drop BOTH EYES DAILY [facility] Last Admin: 02/06/19 10:06 Dose: 1 drop Polyethylene Glycol/Electrolytes (Miralax*) 17 gm PO DAILY [facility] Last Admin: 02/06/19 08:45 Dose: Not Given Senna (Senokot Tab*) 2 tab PO DAILY PRN PRN Reason: CONSTIPATION Sucralfate (Carafate*) 1 gm PO BID AC [facility] Last Admin: 02/06/19 08:44 Dose: Not Given Trazodone HCl (Desyrel Tab*) 50 mg PO QPM [facility] Last Admin: 02/05/19 18:16 Dose: Not Given Zinc Oxide (Triple Paste 12.8% (Topical)) 1 applic TOPICAL BID [facility] Last Admin: 02/06/19 10:06 Dose: 1 applic Vital Signs - 8 hr 02/06/19 02/06/19 02/06/19 07:45 08:00 08:40 Temperature 98.5 F 98.5 F Pulse Rate 72 72 Respiratory 16 17 16 Rate Blood Pressure 156/51 156/51 (mmHg) O2 Sat by Pulse 98 96 98 Oximetry 04/03/19 04/03/19 11:27 14:23 Temperature 98.0 F Pulse Rate 70 Respiratory 16 14 Rate Blood Pressure 160/60 (mmHg) O2 Sat by Pulse 97 Oximetry Oxygen Devices in Use Now: None Appearance: Comfortable, NAD. Eyes: No Scleral Icterus Ears/Nose/Mouth/Throat: Clear Oropharnyx, Mucous Membranes Moist Neck: NL Appearance and Movements; NL JVP Respiratory: Symmetrical Chest Expansion and Respiratory Effort, Clear to Auscultation Cardiovascular: NL Sounds; No Murmurs; No JVD, RRR, No Edema Abdominal: NL Sounds; No Tenderness; No Distention Lymphatic: No Cervical Adenopathy Extremities: No Clubbing, Cyanosis Skin: No Rash or Ulcers Neurological: NL Muscle Strength and Tone, - - Alert to self. Nutrition: Taking PO's Result Diagrams: 02/06/19 08:42 02/06/19 08:42 Additional Lab and Data: Laboratory Results - last 24 hr 02/06/19 02/06/19 08:42 08:42 WBC 11.0 H RBC 3.41 L Hgb 9.7 L Hct 29 L MCV 86 MCH 28 MCHC 33 RDW 16 H Plt Count 188 MPV 8.3 Neut % (Auto) 82.4 Lymph % (Auto) 10.3 [place] % (Auto) 7.0 Eos % (Auto) 0.1 Baso % (Auto) 0.2 Absolute Neuts (auto) 9.1 H Absolute Lymphs (auto) 1.1 Absolute Monos (auto) 0.8 Absolute Eos (auto) 0 Absolute Basos (auto) 0 Absolute Nucleated RBC 0 Nucleated RBC % 0 Sodium 142 Potassium 3.8 Chloride 114 H Carbon Dioxide 20 L Anion Gap 8 BUN 19 Creatinine 0.95 Est GFR ( Amer) 67.0 Est GFR (Non-Af Amer) 55.4 BUN/Creatinine Ratio 20.0 Glucose 108 H Calcium 8.6 Microbiology and Other Data: Microbiology 02/05/19 14:12 Aerobic Blood Culture - Preliminary Blood Venous No Growth Day 1 Anaerobic Blood Culture - Preliminary 02/04/19 23:27 Urine Culture - Preliminary Urine Escherichia Coli 02/05/19 11:31 Aerobic Blood Culture - Preliminary Blood Venous Escherichia Coli Anaerobic Blood Culture - Preliminary Escherichia Coli 02/04/19 23:10 Aerobic Blood Culture - Preliminary Blood Venous Escherichia Coli Anaerobic Blood Culture - Preliminary No Growth Day 1 02/04/19 22:29 Aerobic Blood Culture - Preliminary Blood Venous Escherichia Coli Anaerobic Blood Culture - Preliminary Escherichia Coli 02/05/19 07:13 Nasal Screen MRSA (PCR) - Final Nasal [place] Not Detected 02/04/19 21:47 Influenza Types A,B Antigen - Final Nasal Specimen received for Influenza A/B Molecular testing Assess/Plan/Problems-Billing Assessment: 88 yr old female with pmh dementia, takotsubo, htn, anxiety/depression, gerd; who presented to ED this with cough, fever and weakness - Patient Problems (1) Sepsis Comment: - Secondary to bactermia (Ecoli in blood cultures) secondary to urinary tract infection. ID consulting and we appreciate their assistance. - ID ordered kidney ultrasound. - No fever since yesterday. - Cont Cefepime until sensitivities result - Repeat blood cultures ordered today (2) Pneumonia Comment: - CT questionable for pneumonia and patient improving with Cefepime and BC grew Ecoli - Per ID continue Cefepime. - Consider repeat imaging. (3) Dementia Comment: - Supportive care (4) Altered mental status, unspecified Comment: - Suspected secondary to dementia and acute illness (5) Depression Comment: - Cont Lexapro at lower dose given advanced age. (6) HTN (hypertension) Comment: - Restart Losartan as patient's creatinine has improved and is mildly hypertensive. - Was on Metoprolol at lower dose with holding parameters, but consider resuming home dose if HR and BP can handle (7) DVT prophylaxis Comment: - HSQ Status and Disposition: Inpatient. Return to [place] when medically stable. Attending: Nallely Arellano
[2019-02-06] MEDS: traZODone TAB* 50 MG TAB PO SCH (18:17)
[2019-02-06] MEDS: Carboxymethylcellulose/Glyceri 10 ML OPHTH.GEL lubricant eye gel BOTH EYES SCH (18:17)
[2019-02-06] MEDS: Metoprolol Succinate XL TAB* 25 MG PO SCH (21:31)
[2019-02-07] MEDS: Cefepime 1 GM in Dextrose(*) 1 GM/50 ML BAG IV SCH (04:46)
[2019-02-07] MEDS: Heparin VIAL(*) 5000 UNITS/ML VIAL (FIVE THOUSAND) SUBCUT SCH ×3 (04:49→20:12)
[2019-02-07] MEDS: NS 0.9% 1000 ML** 1,000 ML IV SCH (05:07)
[2019-02-07] MEDS: Sucralfate TAB* 1 GM PO SCH ×2 (08:43→16:53)
[2019-02-07] MEDS: Pantoprazole TAB * 40 MG TAB PO SCH (10:17)
[2019-02-07] MEDS: Polyethyl Glycol/Propylene Gly OPHTH.SOLN BOTH EYES SCH (10:17)
[2019-02-07] MEDS: Fluticasone NASAL SPRAY 50MCG* 16 gm SPRAY BTL BOTH NARES SCH ×2 (10:17→20:11)
[2019-02-07] MEDS: Calcium/Vitamin D TAB 250/125* TAB PO SCH ×2 (10:18→20:12)
[2019-02-07] MEDS: Aspirin EC TAB* 81 MG TAB.EC PO SCH (10:18)
[2019-02-07] MEDS: Magnesium Oxide TAB* 400 MG PO SCH (10:18)
[2019-02-07] MEDS: Losartan TAB* 25 MG PO SCH (10:18)
[2019-02-07] MEDS: Oxybutynin XL TAB* 5 MG PO SCH (10:18)
[2019-02-07] MEDS: Polyethylene Glycol 3350* 17 GM PACKET PO SCH (10:19)
[2019-02-07] MEDS: ZINC OXIDE 12.8% (TOPICAL) 60 GM TUBE TOPICAL SCH ×2 (10:19→20:22)
--- NOTE | 2019-02-07 10:41 | PN ---
Progress Note - Progress Note Date of Service: 02/07/19 SOAP: Subjective: CC: E. coli bacteremia HPI:88 year old woman admitted with cough, fever, encephalopathy found to have bacteremia due to UTI. She has no pain, fever, rash, or diarrhea. Objective: Vital Signs Temp 37.0 C 02/07/19 08:34 Pulse 77 02/07/19 08:34 Resp 16 02/07/19 08:34 BP 136/66 02/07/19 08:34 Pulse Ox 97 02/07/19 08:34 Intake & Output 02/06/19 02/07/19 02/07/19 18:59 06:59 18:59 Intake Total 400 818 Output Total 0 Balance 400 818 Intake: IV Fluids 400 768 ABX - CEFEPIME 62 NS (0.9%) 400 706 IVPB 50 ABX - CEFEPIME 50 Oral 0 0 Output: Urine 0 Other: # Bowel Movements 1 General: Awake, no acute distress Neurological: Alert and Oriented to person; hard of hearing Cardiovascular: regular, no murmur Respiratory: Lung sounds clear, bilateral Abdominal: soft, non distended, no flank tenderness Skin: No rash Microbiology 02/04/19 23:27 Urine Culture - Final Urine Escherichia Coli 02/05/19 11:31 Aerobic Blood Culture - Final Blood Venous Escherichia Coli Anaerobic Blood Culture - Final Escherichia Coli 02/05/19 14:12 Aerobic Blood Culture - Final Blood Venous Escherichia Coli Anaerobic Blood Culture - Final Escherichia Coli 02/04/19 23:10 Aerobic Blood Culture - Final Blood Venous Escherichia Coli Anaerobic Blood Culture - Preliminary No Growth Day 2 02/04/19 22:29 Aerobic Blood Culture - Final Blood Venous Escherichia Coli Anaerobic Blood Culture - Final Escherichia Coli renal US no hydronephrosis or stones Assessment: 1. E. coli bacteremia due to urinary tract infection 2. Acute Kidney Injury. Resolved 3. encephalopathy, resolving 3. Dementia. 4. AMOXICILLIN and MOXIFOLXACIN allergies. Plan: 1. change cefepime to ceftriaxone 1 gm daily (ordered), then when consistent PO intake, change to cephalexin 500 mg po bid to finish 10 day course total of antibiotics
--- NOTE | 2019-02-07 10:50 | PN ---
Subjective Date of Service: 02/07/19 Interval History: Patient is difficult to communicate with due t being severely [place]. Patient states she feels lethargic compared to her baseline. Pateint denies CP, SOB, N/V , abdominal pain, diarrhea, F/C, Dysuria, frequency. Patient feels as if she is able to walk well. Family History: Unchanged from Admission Social History: Unchanged from Admission Past Medical History: Unchanged from Admission Objective Active Medications: Acetaminophen (Tylenol Tab*) 650 mg PO Q4H PRN PRN Reason: FEVER/PAIN Acetaminophen (Tylenol Supp*) 650 mg VA Q4H PRN PRN Reason: FEVER/PAIN Last Admin: 02/05/19 11:14 Dose: 650 mg Al Hydrox/Mg Hydrox/Simethicone (Maalox Plus*) 30 ml PO Q6H PRN PRN Reason: INDIGESTION Albuterol (Ventolin 2.5 Mg/3 Ml Neb.Cassie*) 2.5 mg INH Q4H PRN PRN Reason: SOB/WHEEZING Aspirin (Aspirin Ec Tab*) 81 mg PO DAILY [facility] Last Admin: 02/07/19 10:18 Dose: 81 mg Calcium/Vitamin D (Oscal D Tab 250/125*) 1 tab PO BID [facility] Last Admin: 02/07/19 10:18 Dose: 1 tab Carboxymethylcellulose/Glycerin (Refresh Optive Gel Eye Gel) 1 applic BOTH EYES QPM [facility] Last Admin: 02/06/19 18:17 Dose: 1 applic Diazepam (Valium Tab(*)) 2.5 mg PO Q6H PRN PRN Reason: ANXIETY Last Admin: 02/06/19 14:23 Dose: 2.5 mg Fluticasone Propionate (Flonase Nasal [place] 50mcg*) 1 spray BOTH NARES BID [facility] Last Admin: 02/07/19 10:17 Dose: 1 spray Guaifenesin/Dextromethorphan (Robitussin Dm*) 10 ml PO Q4H PRN PRN Reason: COUGH Heparin Sodium (Porcine) (Heparin Vial(*)) 5,000 units SUBCUT Q8HR [facility] Last Admin: 02/07/19 04:49 Dose: 5,000 units Ceftriaxone Sodium 1 gm/ (Sodium Chloride) 50 mls @ 200 mls/hr IVPB Q24H [facility] Losartan Potassium (Cozaar Tab*) 50 mg PO DAILY [facility] Last Admin: 02/07/19 10:18 Dose: 50 mg Magnesium Oxide (Magox 400 Tab*) 400 mg PO DAILY [facility] Last Admin: 02/07/19 10:18 Dose: 400 mg Metoprolol Succinate (Toprol Xl Tab*) 25 mg PO BEDTIME [facility] Ondansetron HCl (Zofran Inj*) 4 mg IV Q4H PRN PRN Reason: NAUSEA/VOMITING Oxybutynin Chloride (Ditropan Xl Tab*) 15 mg PO DAILY [facility] Last Admin: 02/07/19 10:18 Dose: 15 mg Pantoprazole Sodium (Protonix Tab*) 40 mg PO DAILY [facility] Last Admin: 02/07/19 10:17 Dose: 40 mg Polyethyl Glycol/Propylene Glycol (Lubricant Eye Drops) 1 drop BOTH EYES DAILY [facility] Last Admin: 02/07/19 10:17 Dose: 1 drop Polyethylene Glycol/Electrolytes (Miralax*) 17 gm PO DAILY [facility] Last Admin: 02/07/19 10:19 Dose: Not Given Senna (Senokot Tab*) 2 tab PO DAILY PRN PRN Reason: CONSTIPATION Sucralfate (Carafate*) 1 gm PO BID AC [facility] Last Admin: 02/07/19 08:43 Dose: 1 gm Trazodone HCl (Desyrel Tab*) 50 mg PO QPM [facility] Last Admin: 02/06/19 18:17 Dose: 50 mg Zinc Oxide (Triple Paste 12.8% (Topical)) 1 applic TOPICAL BID [facility] Last Admin: 02/07/19 10:19 Dose: 1 applic Vital Signs - 8 hr 02/07/19 02/07/19 02/07/19 03:31 08:00 08:34 Temperature 97.7 F 98.6 F Pulse Rate 29 77 Respiratory 18 19 16 Rate Blood Pressure 182/89 136/66 (mmHg) O2 Sat by Pulse 98 97 Oximetry Oxygen Devices in Use Now: None Appearance: Patient is an 88yo female who appears stated age and is sitting in the bed in [facility]. Eyes: No Scleral Icterus, PERRLA Ears/Nose/Mouth/Throat: NL Teeth, Lips, Gums, Clear Oropharnyx, Mucous Membranes Moist Neck: NL Appearance and Movements; NL JVP, Trachea Midline Respiratory: Symmetrical Chest Expansion and Respiratory Effort, Clear to Auscultation Cardiovascular: NL Sounds; No Murmurs; No JVD, No Edema, - - Regularly irregular rhythm. Abdominal: NL Sounds; No Tenderness; No Distention, No Hepatosplenomegaly Lymphatic: No Cervical Adenopathy Extremities: No Edema, No Clubbing, Cyanosis Skin: No Rash or Ulcers, No Nodules or Sclerosis Neurological: Alert and Oriented x 3, NL Sensation, - - Right sided facial droop. Result Diagrams: 02/06/19 08:42 02/06/19 08:42 Additional Lab and Data: Laboratory Results - last 24 hr Microbiology and Other Data: Microbiology 02/05/19 14:12 Aerobic Blood Culture - Preliminary Blood Venous No Growth Day 1 Anaerobic Blood Culture - Preliminary 02/04/19 23:27 Urine Culture - Preliminary Urine Escherichia Coli 02/05/19 11:31 Aerobic Blood Culture - Preliminary Blood Venous Escherichia Coli Anaerobic Blood Culture - Preliminary Escherichia Coli 02/04/19 23:10 Aerobic Blood Culture - Preliminary Blood Venous Escherichia Coli Anaerobic Blood Culture - Preliminary No Growth Day 1 02/04/19 22:29 Aerobic Blood Culture - Preliminary Blood Venous Escherichia Coli Anaerobic Blood Culture - Preliminary Escherichia Coli 02/05/19 07:13 Nasal Screen MRSA (PCR) - Final Nasal Mrsa Not Detected 02/04/19 21:47 Influenza Types A,B Antigen - Final Nasal Specimen received for Influenza A/B Molecular testing Assess/Plan/Problems-Billing Assessment: 88 yr old female with PMH for Dementia, takotsubo, htn, anxiety/depression, gerd ; who presented to ED this with cough, fever and weakness and was found to be bacteremic with E. coli from a likely urinary source. - Patient Problems (1) Sepsis Current Visit: Yes Status: Acute Comment: - Secondary to bactermia (Ecoli in blood cultures) secondary to urinary tract infection. - ID consulting and we appreciate their assistance. - Kidney US unremarkable - Afebrile for almost 48 hrs. - Switch to ceftriaxone - Repeat blood cultures pending (2) Urinary tract infection Current Visit: Yes Status: Acute Comment: - With E. coli, pansensitive - Continue ceftriaxone - US reveals unremarkable tract. (3) HTN (hypertension) Current Visit: Yes Status: Acute Code(s): I10 - ESSENTIAL (PRIMARY) HYPERTENSION SNOMED Code(s): 49146361 Comment: - Restart Losartan and Metoprolol - Stop fluids, was hypertensive this AM. (4) Pneumonia Current Visit: Yes Status: Acute Code(s): J18.9 - PNEUMONIA, UNSPECIFIED ORGANISM SNOMED Code(s): 461252674 Comment: - Consider repeat imaging outpatient - On Ceftriaxone - Not likely source of bacteremia and sepsis, possibly onlt pneumonitis from aspiration - Continue mechanical ground diet. (5) Altered mental status, unspecified Current Visit: No Status: Acute Code(s): R41.82 - ALTERED MENTAL STATUS, UNSPECIFIED SNOMED Code(s): 368885620 Comment: - Toxic metabolic Encephalopathy - Suspected secondary to dementia and acute illness (6) Dementia Current Visit: Yes Status: Acute Code(s): F03.90 - UNSPECIFIED DEMENTIA WITHOUT BEHAVIORAL DISTURBANCE SNOMED Code(s): 23287964 Comment: - Supportive care (7) Depression Current Visit: No Status: Acute Code(s): F32.9 - MAJOR DEPRESSIVE DISORDER, SINGLE EPISODE, UNSPECIFIED SNOMED Code(s): 47279777 Comment: - Cont Lexapro at lower dose given advanced age. (8) DVT prophylaxis Current Visit: No Status: Acute Code(s): MLX8657 - SNOMED Code(s): 875911762 Comment: - HSQ Status and Disposition: Inpatient. Return to [place] when medically stable, hopefully 1-2 more days.
[2019-02-07 14:21] LABS: BUN/Creatinine Ratio 15.1 (8-20); EGFR African American 68.7 (>60); EGFR Non-African American 56.8 (>60); Potassium 3.3 mmol/L (3.5-5.0)
[2019-02-07 14:32] LABS: ABS Basophils 0 10^3/ul (0-0.2); ABS Eosinophils 0.1 10^3/ul (0-0.6); ABS Lymphocytes 0.9 10^3/ul (1.0-4.8); ABS Monocytes 0.7 10^3/ul (0-0.8); ABS Neutrophils 7.4 10^3/ul (1.5-7.7); ABS Nucleated RBC 0 10^3/ul; Eosinophil % 0.7 %; Hematocrit 35 % (33-41); Lymphocyte % 9.6 %; Mean Corpuscular HGB Conc 32 g/dL (31-36); Mean Corpuscular Hemoglobin 28 pg (27-31); Mean Corpuscular Volume 89 fL (80-97); Mean Platelet Volume 8.5 fL (7.4-10.4); Nucleated Red Blood Cells % 0.1; Platelet Count 217 10^3/uL (150-450); Red Blood Count 3.88 10^6 /uL (3.70-4.87); Red Cell Distribution Width 16 % (10.5-15); White Blood Count 9.1 10^3/uL (3.5-10.8)
[2019-02-07] MEDS: cefTRIAXone(*) 1 GM in NS 0.9% 50 ML* 50 ML IVPB SCH (14:58)
[2019-02-07] MEDS: Carboxymethylcellulose/Glyceri 10 ML OPHTH.GEL lubricant eye gel BOTH EYES SCH (18:39)
[2019-02-07] MEDS: traZODone TAB* 50 MG TAB PO SCH (18:39)
[2019-02-07] MEDS: Metoprolol Succinate XL TAB* 25 MG PO SCH (20:11)
[2019-02-08] MEDS: Heparin VIAL(*) 5000 UNITS/ML VIAL (FIVE THOUSAND) SUBCUT SCH ×3 (06:13→20:20)
[2019-02-08 07:12] LABS: BUN/Creatinine Ratio 15.7 (8-20); Calcium 8.9 mg/dL (8.6-10.3); EGFR African American 78.3 (>60); EGFR Non-African American 64.7 (>60); Potassium 3.3 mmol/L (3.5-5.0)
[2019-02-08] MEDS ORDERED: Potassium Chloride LIQUID* 20 MEQ PACKET PO ONE (07:56)
[2019-02-08] MEDS: Polyethylene Glycol 3350* 17 GM PACKET PO SCH (08:45)
[2019-02-08] MEDS: Pantoprazole TAB * 40 MG TAB PO SCH (08:46)
[2019-02-08] MEDS: Losartan TAB* 25 MG PO SCH (08:46)
[2019-02-08] MEDS: Magnesium Oxide TAB* 400 MG PO SCH (08:47)
[2019-02-08] MEDS: Fluticasone NASAL SPRAY 50MCG* 16 gm SPRAY BTL BOTH NARES SCH ×2 (08:47→20:20)
[2019-02-08] MEDS: Polyethyl Glycol/Propylene Gly OPHTH.SOLN BOTH EYES SCH (08:47)
[2019-02-08] MEDS: Aspirin EC TAB* 81 MG TAB.EC PO SCH (08:47)
[2019-02-08] MEDS: Oxybutynin XL TAB* 5 MG PO SCH (08:47)
[2019-02-08] MEDS: Sucralfate TAB* 1 GM PO SCH ×2 (08:47→17:07)
[2019-02-08] MEDS: Calcium/Vitamin D TAB 250/125* TAB PO SCH ×2 (08:47→20:19)
[2019-02-08] MEDS: ZINC OXIDE 12.8% (TOPICAL) 60 GM TUBE TOPICAL SCH ×2 (08:51→20:20)
--- NOTE | 2019-02-08 13:27 | PN ---
Progress Note - Progress Note Date of Service: 02/08/19 SOAP: Subjective: CC: E. coli bacteremia HPI:88 year old woman admitted with cough, fever, encephalopathy found to have bacteremia due to UTI. She has no pain, fever, rash, or diarrhea. Eating lunch. Objective: Vital Signs Temp 36.3 C 02/08/19 11:55 Pulse 86 02/08/19 11:55 Resp 16 02/08/19 11:55 BP 166/48 02/08/19 11:55 Pulse Ox 96 02/08/19 11:55 Intake & Output 02/07/19 02/08/19 02/08/19 18:59 06:59 18:59 Intake Total 1170 100 180 Balance 1170 100 180 Intake: IV Fluids 450 ABX - CEFEPIME 450 Oral 720 100 180 Other: Estimated Void Medium Medium Estimated Stool Amount Medium Medium # Voids 1 3 General: Awake, no acute distress Neurological: Alert and Oriented to person; hard of hearing; location = motel Cardiovascular: regular, no murmur Respiratory: Lung sounds clear, bilateral Abdominal: soft, non distended, no flank tenderness Skin: No rash Laboratory Results - last 24 hr 02/07/19 02/07/19 02/08/19 13:18 13:18 06:36 WBC 9.1 RBC 3.88 Hgb 11.0 L Hct 35 MCV 89 MCH 28 MCHC 32 RDW 16 H Plt Count 217 MPV 8.5 Neut % (Auto) 82.0 Lymph % (Auto) 9.6 Summers % (Auto) 7.5 Eos % (Auto) 0.7 Baso % (Auto) 0.2 Absolute Neuts (auto) 7.4 Absolute Lymphs (auto) 0.9 L Absolute Monos (auto) 0.7 Absolute Eos (auto) 0.1 Absolute Basos (auto) 0 Absolute Nucleated RBC 0 Nucleated RBC % 0.1 Sodium 140 140 Potassium 3.3 L 3.3 L Chloride 112 H 111 Carbon Dioxide 20 L 22 Anion Gap 8 7 BUN 14 13 Creatinine 0.93 0.83 Est GFR ( Amer) 68.7 78.3 Est GFR (Non-Af Amer) 56.8 64.7 BUN/Creatinine Ratio 15.1 15.7 Glucose 138 H 130 H Calcium 9.0 8.9 Assessment: 1. E. coli bacteremia due to urinary tract infection 2. Acute Kidney Injury. Resolved 3. encephalopathy, resolving 3. Dementia. 4. AMOXICILLIN and MOXIFOLXACIN allergies. Plan: 1. DC ceftriaxone 1 gm daily after today's dose, then wcephalexin 500 mg po bid to finish 10 day course total of antibiotics (day 5 of 10 today) []
[2019-02-08] MEDS: cefTRIAXone(*) 1 GM in NS 0.9% 50 ML* 50 ML IVPB SCH (13:30)
--- NOTE | 2019-02-08 13:47 | ECHO ---
Patient: KENDY KLEIN [facility] Rec#: [id number] : 1930 Date: 02/08/2019 Age: 88y Height: 165.1 cm / 65.0 in Weight: 50.35 kg / 111.0 lbs Sex: F BSA: 1.54 Room#: [facility] Admit Date#: 02/05/2019 Type: Inpatient Referring: Chris Abreu Reading: Justyn Rivera MD Tooth Polisher: Eva GeeKEVIN CC: Conrado Herrmann MD Transthoracic Echocardiogram Indication: Congestive heart failure BP: 154/55 HR: 67 Rhythm: NSR with PVCs Findings History: Dementia, Takotsubo, HTN, CVA, and COPD. Technical Comments: The study quality is good. Completed at 1055. Left Ventricle: The left ventricular chamber size is normal. Mild concentric left ventricular hypertrophy is observed. Left ventricular systolic function is at the lower limits of normal. Patient in trigeminy which compromises LV function assessment. The estimated ejection fraction is 50-55%. Abnormal left ventricular diastolic function is observed. The left ventricular diastolic filling pattern is consistent with pseudonormalization. The patient was unable to perform a Valsalva maneuver. Left Atrium: The left atrium is severely dilated. Right Ventricle: Moderator Band present. The right ventricular cavity size is normal. The right ventricular global systolic function is low normal. Right Atrium: The right atrium is moderately dilated. Aortic Valve: The aortic valve is trileaflet. The aortic valve leaflets are mildly thickened. There is a trace of aortic regurgitation. There is no evidence of aortic stenosis. Mitral Valve: There is mitral annular calcification. The mitral valve leaflets are mildly thickened. There is mild mitral regurgitation. There is no evidence of mitral stenosis. Tricuspid Valve: The tricuspid valve leaflets are mildly thickened. There is moderate tricuspid regurgitation. The right ventricular systolic pressure is estimated at 41 mmHg. There is evidence of mild to moderate pulmonary hypertension. There is no tricuspid stenosis. Pulmonic Valve: The pulmonic valve appears normal. There is a trace pulmonic regurgitation. There is no pulmonic stenosis. Pericardium: A trivial pericardial effusion is visualized. There are no signs of significant hemodynamic compromise. There is a circumferential pericardial effusion. Aorta: There is no dilatation of the ascending aorta. There is no dilatation of the aortic arch. The aortic root is normal in size. Pulmonary Artery: The main pulmonary artery appears normal. Venous: The inferior vena cava appears normal in size. There is a greater than 50% respiratory change in the inferior vena cava dimension. Conclusions Mild concentric left ventricular hypertrophy is observed. Left ventricular systolic function is at the lower limits of normal. Patient in trigeminy during exam which compromises LV function assessment. The estimated ejection fraction is 50-55%. The left ventricular diastolic filling pattern is consistent with pseudonormalization. The left atrium is severely dilated. The right ventricular global systolic function is low normal. The right atrium is moderately dilated. The aortic valve leaflets are mildly thickened. There is a trace of aortic regurgitation. The mitral valve leaflets are mildly thickened. There is mild mitral regurgitation. There is moderate tricuspid regurgitation. There is evidence of mild to moderate pulmonary hypertension. Interval improvement in EF c/t 02/2018 when the ef was 40-45%. Measurements Name Value Normal Range RVIDd (AP) 2D 2.7 cm (0.9 - 2.6) RVDdMajor (2D) 4.4 cm (2.2 - 4.4) RAd ISD 4CH 5.7 cm (3.4 - 4.9) RA (A4C)W 4.8 cm (2.9 - 4.6) IVSd (2D) 1.1 cm (0.6 - 1) LVPWd (2D) 1.1 cm (0.6 - 1) LVIDd (2D) 4.2 cm (3.6 - 5.4) LVIDs (2D) 2.8 cm - LV FS (2D) 33 % (25 - 45) Aortic Annulus 1.7 cm (1.4 - 2.6) Ao root diameter (2D) 2.8 cm (2.1 - 3.5) Ascending Ao 2.9 cm (2.1 - 3.4) Aortic arch 2.6 cm (1.8 - 3.4) LA dimension (AP) 2D 3.4 cm (2.3 - 3.8) LAd ISD 4CH 6 cm (2.9 - 5.3) LA ISD 4CH W 4.4 cm (2.5 - 4.5) Name Value Normal Range LA ESV SP 4CH (A/L) 102 ml - LA ESV SP 2CH (A/L) 64 ml - LA ESV BP (A/L) 84 ml - LA ESV BP (A/L) index 54 ml/m2 - LA ESV SP 4CH (MOD) 95 ml - LA ESV SP 2CH (MOD) 60 ml - Name Value Normal Range MV E-wave Vmax 0.91 m/sec - MV deceleration time 200 msec - MV A-wave Vmax 0.71 m/sec - MV E:A ratio 1.3 ratio - LV septal e' Vmax 0.07 m/sec - LV lateral e' Vmax 0.09 m/sec - LV E:e' septal ratio 12.9 ratio - LV E:e' lateral ratio 10 ratio - Name Value Normal Range AV Vmax 1.4 m/sec - AV VTI 29.2 cm - AV peak gradient 9 mmHg - AV mean gradient 4 mmHg - LVOT Vmax 1.1 m/sec - LVOT VTI 22 cm - LVOT peak gradient 5 mmHg - LVOT mean gradient 2 mmHg - KAREN Vmax 0.6 m/sec - Name Value Normal Range MR Vmax 4.9 m/sec - MR VTI 147 cm - Name Value Normal Range TR Vmax 3.1 m/sec - TR peak gradient 38 mmHg - RAP 3 mmHg - RVSP 41 mmHg - IVC diameter 1.7 cm - Name Value Normal Range PV Vmax 1 m/sec - PV peak gradient 4 mmHg - DE end-diastolic Vmax 1.2 m/sec -
--- NOTE | 2019-02-08 14:19 | PN ---
Subjective Date of Service: 02/08/19 Interval History: Patient continues to feel as if she has no energy. Patient states she is somewhat hungry. Patient's niece who is familiar with her care states she usually eats well, particularly sweet foods. Patient denies F/C, N/V, abdominal pain, diarrhea, CP, SOB, dizziness, palpitations, dysuria, urinary frequency or other pain. Family History: Unchanged from Admission Social History: Unchanged from Admission Past Medical History: Unchanged from Admission Objective Active Medications: Acetaminophen (Tylenol Tab*) 650 mg PO Q4H PRN PRN Reason: FEVER/PAIN Acetaminophen (Tylenol Supp*) 650 mg [place] Q4H PRN PRN Reason: FEVER/PAIN Last Admin: 02/05/19 11:14 Dose: 650 mg Al Hydrox/Mg Hydrox/Simethicone (Maalox Plus*) 30 ml PO Q6H PRN PRN Reason: INDIGESTION Albuterol (Ventolin 2.5 Mg/3 Ml Neb.Cassie*) 2.5 mg INH Q4H PRN PRN Reason: SOB/WHEEZING Aspirin (Aspirin Ec Tab*) 81 mg PO DAILY [facility] Last Admin: 02/08/19 08:47 Dose: 81 mg Calcium/Vitamin D (Oscal D Tab 250/125*) 1 tab PO BID [facility] Last Admin: 02/08/19 08:47 Dose: 1 tab Carboxymethylcellulose/Glycerin (Refresh Optive Gel Eye Gel) 1 applic BOTH EYES QPM [facility] Last Admin: 02/07/19 18:39 Dose: 1 applic Cephalexin HCl (Keflex Cap*) 500 mg PO BID [facility] Diazepam (Valium Tab(*)) 2.5 mg PO Q6H PRN PRN Reason: ANXIETY Last Admin: 02/06/19 14:23 Dose: 2.5 mg Fluticasone Propionate (Flonase Nasal [place] 50mcg*) 1 spray BOTH NARES BID [facility] Last Admin: 02/08/19 08:47 Dose: 1 spray Guaifenesin/Dextromethorphan (Robitussin Dm*) 10 ml PO Q4H PRN PRN Reason: COUGH Heparin Sodium (Porcine) (Heparin Vial(*)) 5,000 units SUBCUT Q8HR [facility] Last Admin: 02/08/19 13:30 Dose: 5,000 units Ceftriaxone Sodium 1 gm/ (Sodium Chloride) 50 mls @ 200 mls/hr IVPB Q24H [facility] Stop: 02/08/19 23:59 Last Admin: 02/08/19 13:30 Dose: 200 mls/hr Losartan Potassium (Cozaar Tab*) 50 mg PO DAILY [facility] Last Admin: 02/08/19 08:46 Dose: 50 mg Magnesium Oxide (Magox 400 Tab*) 400 mg PO DAILY [facility] Last Admin: 02/08/19 08:47 Dose: 400 mg Metoprolol Succinate (Toprol Xl Tab*) 25 mg PO BEDTIME [facility] Last Admin: 02/07/19 20:11 Dose: 25 mg Ondansetron HCl (Zofran Inj*) 4 mg IV Q4H PRN PRN Reason: NAUSEA/VOMITING Oxybutynin Chloride (Ditropan Xl Tab*) 15 mg PO DAILY [facility] Last Admin: 02/08/19 08:47 Dose: 15 mg Pantoprazole Sodium (Protonix Tab*) 40 mg PO DAILY [facility] Last Admin: 02/08/19 08:46 Dose: 40 mg Polyethyl Glycol/Propylene Glycol (Lubricant Eye Drops) 1 drop BOTH EYES DAILY [facility] Last Admin: 02/08/19 08:47 Dose: 1 drop Polyethylene Glycol/Electrolytes (Miralax*) 17 gm PO DAILY [facility] Last Admin: 02/08/19 08:45 Dose: 17 gm Senna (Senokot Tab*) 2 tab PO DAILY PRN PRN Reason: CONSTIPATION Sucralfate (Carafate*) 1 gm PO BID AC [facility] Last Admin: 02/08/19 08:47 Dose: 1 gm Trazodone HCl (Desyrel Tab*) 50 mg PO QPM [facility] Last Admin: 02/07/19 18:39 Dose: 50 mg Zinc Oxide (Triple Paste 12.8% (Topical)) 1 applic TOPICAL BID [facility] Last Admin: 02/08/19 08:51 Dose: 1 applic Vital Signs - 8 hr 02/08/19 02/08/19 02/08/19 08:00 09:49 10:28 Temperature 99.5 F 99.6 F Pulse Rate 55 Respiratory 16 16 16 Rate Blood Pressure 138/27 155/40 (mmHg) O2 Sat by Pulse 95 95 95 Oximetry 02/08/19 11:55 Temperature 97.3 F Pulse Rate 86 Respiratory 16 Rate Blood Pressure 166/48 (mmHg) O2 Sat by Pulse 96 Oximetry Oxygen Devices in Use Now: None Appearance: Patient is an 88yo female who appears stated age and is sitting in the bed in [place]. Eyes: No Scleral Icterus, PERRLA Ears/Nose/Mouth/Throat: NL Teeth, Lips, Gums, Clear Oropharnyx, Mucous Membranes Moist Neck: Trachea Midline, - - JVD to angle of jaw Respiratory: Symmetrical Chest Expansion and Respiratory Effort, Clear to Auscultation Cardiovascular: NL Sounds; No Murmurs; No JVD, RRR, No Edema Abdominal: NL Sounds; No Tenderness; No Distention, No Hepatosplenomegaly Lymphatic: No Cervical Adenopathy Extremities: No Edema, No Clubbing, Cyanosis Skin: No Rash or Ulcers, No Nodules or Sclerosis Neurological: Alert and Oriented x 3, NL Sensation, NL Muscle Strength and Tone , - - Right sided peripheral facial droop. Result Diagrams: 02/07/19 13:18 02/08/19 06:36 Additional Lab and Data: Laboratory Results - last 24 hr Microbiology and Other Data: Microbiology 02/05/19 14:12 Aerobic Blood Culture - Preliminary Blood Venous No Growth Day 1 Anaerobic Blood Culture - Preliminary 02/04/19 23:27 Urine Culture - Preliminary Urine Escherichia Coli 02/05/19 11:31 Aerobic Blood Culture - Preliminary Blood Venous Escherichia Coli Anaerobic Blood Culture - Preliminary Escherichia Coli 02/04/19 23:10 Aerobic Blood Culture - Preliminary Blood Venous Escherichia Coli Anaerobic Blood Culture - Preliminary No Growth Day 1 02/04/19 22:29 Aerobic Blood Culture - Preliminary Blood Venous Escherichia Coli Anaerobic Blood Culture - Preliminary Escherichia Coli 02/05/19 07:13 Nasal Screen MRSA (PCR) - Final Nasal Mrsa Not Detected 02/04/19 21:47 Influenza Types A,B Antigen - Final Nasal Specimen received for Influenza A/B Molecular testing Assess/Plan/Problems-Billing Assessment: 88 yr old female with PMH for Dementia, takotsubo, htn, anxiety/depression, gerd ; who presented to ED this with cough, fever and weakness and was found to be bacteremic with E. coli from a likely urinary source who is improving but is having significant issues with fatigue and dysphagia. - Patient Problems (1) Sepsis Current Visit: Yes Status: Acute Comment: - Secondary to bactermia (Ecoli in blood cultures) secondary to urinary tract infection. - ID consulting and we appreciate their assistance. - Kidney US unremarkable - Afebrile >48hrs - Switch to Keflex per ID - Repeat blood cultures negative (2) Urinary tract infection Current Visit: Yes Status: Acute Comment: - With E. coli, pansensitive - Switch to Keflex - US reveals unremarkable tract. 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 - Likely due to progression of dementia, no other new neurological deficits to indicate possible CVA - Encourage PO intake (4) History of cardiomyopathy Current Visit: Yes Status: Acute Code(s): Z86.79 - PERSONAL HISTORY OF OTHER DISEASES OF THE CIRCULATORY SYSTEM SNOMED Code(s): 508100161151447 Comment: - Due to Takotsubo's disease - Increased EF to 50-55% from a low of 40-45% - JVD on exam today, no other signs of fluid overload - Check CXR for pulmonary edema and consider trial of diuresis (5) HTN (hypertension) Current Visit: Yes Status: Acute Code(s): I10 - ESSENTIAL (PRIMARY) HYPERTENSION SNOMED Code(s): 15085997 Comment: - Restart Losartan and Metoprolol, [place] hypertensive. (6) Pneumonia Current Visit: Yes Status: Acute Code(s): J18.9 - PNEUMONIA, UNSPECIFIED ORGANISM SNOMED Code(s): 254769081 Comment: - Consider repeat imaging outpatient - On Keflex - Not likely source of bacteremia and sepsis, possibly only pneumonitis from aspiration - Switch to Pureed diet per speech therapy. (7) Altered mental status, unspecified Current Visit: No Status: Acute Code(s): R41.82 - ALTERED MENTAL STATUS, UNSPECIFIED SNOMED Code(s): 789188583 Comment: - Toxic metabolic Encephalopathy - Suspected secondary to dementia and acute illness (8) Dementia Current Visit: Yes Status: Acute Code(s): F03.90 - UNSPECIFIED DEMENTIA WITHOUT BEHAVIORAL DISTURBANCE SNOMED Code(s): 60237006 Comment: - Supportive care (9) Depression Current Visit: No Status: Acute Code(s): F32.9 - MAJOR DEPRESSIVE DISORDER, SINGLE EPISODE, UNSPECIFIED SNOMED Code(s): 09415173 Comment: - Cont Lexapro at lower dose given advanced age. (10) DVT prophylaxis Current Visit: No Status: Acute Code(s): LTY0595 - SNOMED Code(s): 867685959 Comment: - HSQ Status and Disposition: Inpatient. Return to [place] when medically stable, hopefully tomorrow.
[2019-02-08] MEDS: Carboxymethylcellulose/Glyceri 10 ML OPHTH.GEL lubricant eye gel BOTH EYES SCH (17:07)
[2019-02-08] MEDS: traZODone TAB* 50 MG TAB PO SCH (17:25)
[2019-02-08] MEDS: Metoprolol Succinate XL TAB* 25 MG PO SCH (20:19)
[2019-02-08] MEDS: Acetaminophen TAB* 325 MG PO PRN (20:20)
[2019-02-09] MEDS: Heparin VIAL(*) 5000 UNITS/ML VIAL (FIVE THOUSAND) SUBCUT SCH ×3 (05:53→20:19)
[2019-02-09 06:17] LABS: ABS Basophils 0 10^3/ul (0-0.2); ABS Eosinophils 0.2 10^3/ul (0-0.6); ABS Monocytes 0.7 10^3/ul (0-0.8); ABS Neutrophils 6.5 10^3/ul (1.5-7.7); ABS Nucleated RBC 0 10^3/ul; Hematocrit 34 % (33-41); Lymphocyte % 11.9 %; Mean Corpuscular HGB Conc 32 g/dL (31-36); Mean Corpuscular Hemoglobin 28 pg (27-31); Mean Corpuscular Volume 87 fL (80-97); Mean Platelet Volume 7.9 fL (7.4-10.4); Nucleated Red Blood Cells % 0.1; Platelet Count 254 10^3/uL (150-450); Red Blood Count 3.94 10^6 /uL (3.70-4.87); Red Cell Distribution Width 16 % (10.5-15); White Blood Count 8.4 10^3/uL (3.5-10.8)
[2019-02-09 06:27] LABS: Calcium 9.5 mg/dL (8.6-10.3); EGFR African American 81.7 (>60); EGFR Non-African American 67.5 (>60); Magnesium 1.9 mg/dL (1.9-2.7); Potassium 3.9 mmol/L (3.5-5.0)
[2019-02-09] MEDS: Calcium/Vitamin D TAB 250/125* TAB PO SCH ×2 (08:31→20:18)
[2019-02-09] MEDS: Polyethyl Glycol/Propylene Gly OPHTH.SOLN BOTH EYES SCH (08:31)
[2019-02-09] MEDS: Fluticasone NASAL SPRAY 50MCG* 16 gm SPRAY BTL BOTH NARES SCH ×2 (08:31→20:19)
[2019-02-09] MEDS: Pantoprazole TAB * 40 MG TAB PO SCH (08:31)
[2019-02-09] MEDS: Losartan TAB* 25 MG PO SCH (08:31)
[2019-02-09] MEDS: Magnesium Oxide TAB* 400 MG PO SCH (08:31)
[2019-02-09] MEDS: Sucralfate TAB* 1 GM PO SCH ×2 (08:31→16:51)
[2019-02-09] MEDS: Oxybutynin XL TAB* 5 MG PO SCH (08:31)
[2019-02-09] MEDS: Aspirin EC TAB* 81 MG TAB.EC PO SCH (08:31)
[2019-02-09] MEDS: Polyethylene Glycol 3350* 17 GM PACKET PO SCH (08:31)
[2019-02-09] MEDS: ZINC OXIDE 12.8% (TOPICAL) 60 GM TUBE TOPICAL SCH ×2 (08:32→20:22)
--- NOTE | 2019-02-09 10:39 | PN ---
Subjective Date of Service: 02/09/19 Interval History: Patient is having abdominal pain intermittently. Patient states that it is mainly in the epigastric area and patient cannot elaborate on character or palliating/provoking factors. Patient's last BM was large and in the evening of 02/08. Patient denies F/C, N/V, CP, SOB, dysuria, or other pain. Patient is much more alert than previously. Family History: Unchanged from Admission Social History: Unchanged from Admission Past Medical History: Unchanged from Admission Objective Active Medications: Acetaminophen (Tylenol Tab*) 650 mg PO Q4H PRN PRN Reason: FEVER/PAIN Last Admin: 02/08/19 20:20 Dose: 650 mg Acetaminophen (Tylenol Supp*) 650 mg [place] Q4H PRN PRN Reason: FEVER/PAIN Last Admin: 02/05/19 11:14 Dose: 650 mg Al Hydrox/Mg Hydrox/Simethicone (Maalox Plus*) 30 ml PO Q6H PRN PRN Reason: INDIGESTION Last Admin: 02/08/19 22:19 Dose: 30 ml Albuterol (Ventolin 2.5 Mg/3 Ml Neb.Cassie*) 2.5 mg INH Q4H PRN PRN Reason: SOB/WHEEZING Aspirin (Aspirin Ec Tab*) 81 mg PO DAILY [facility] Last Admin: 02/09/19 08:31 Dose: 81 mg Calcium/Vitamin D (Oscal D Tab 250/125*) 1 tab PO BID [facility] Last Admin: 02/09/19 08:31 Dose: 1 tab Carboxymethylcellulose/Glycerin (Refresh Optive Gel Eye Gel) 1 applic BOTH EYES QPM [facility] Last Admin: 02/08/19 17:07 Dose: 1 applic Cephalexin HCl (Keflex Cap*) 500 mg PO BID [facility] Diazepam (Valium Tab(*)) 2.5 mg PO Q6H PRN PRN Reason: ANXIETY Last Admin: 02/06/19 14:23 Dose: 2.5 mg Fluticasone Propionate (Flonase Nasal [place] 50mcg*) 1 spray BOTH NARES BID [facility] Last Admin: 02/09/19 08:31 Dose: 1 spray Guaifenesin/Dextromethorphan (Robitussin Dm*) 10 ml PO Q4H PRN PRN Reason: COUGH Heparin Sodium (Porcine) (Heparin Vial(*)) 5,000 units SUBCUT Q8HR [facility] Last Admin: 02/09/19 05:53 Dose: 5,000 units Losartan Potassium (Cozaar Tab*) 50 mg PO DAILY [facility] Last Admin: 02/09/19 08:31 Dose: 50 mg Magnesium Oxide (Magox 400 Tab*) 400 mg PO DAILY [facility] Last Admin: 02/09/19 08:31 Dose: 400 mg Metoprolol Succinate (Toprol Xl Tab*) 25 mg PO BEDTIME [facility] Last Admin: 02/08/19 20:19 Dose: 25 mg Ondansetron HCl (Zofran Inj*) 4 mg IV Q4H PRN PRN Reason: NAUSEA/VOMITING Oxybutynin Chloride (Ditropan Xl Tab*) 15 mg PO DAILY [facility] Last Admin: 02/09/19 08:31 Dose: 15 mg Pantoprazole Sodium (Protonix Tab*) 40 mg PO DAILY [facility] Last Admin: 02/09/19 08:31 Dose: 40 mg Polyethyl Glycol/Propylene Glycol (Lubricant Eye Drops) 1 drop BOTH EYES DAILY [facility] Last Admin: 02/09/19 08:31 Dose: 1 drop Polyethylene Glycol/Electrolytes (Miralax*) 17 gm PO DAILY [facility] Last Admin: 02/09/19 08:31 Dose: 17 gm Senna (Senokot Tab*) 2 tab PO DAILY PRN PRN Reason: CONSTIPATION Sucralfate (Carafate*) 1 gm PO BID AC [facility] Last Admin: 02/09/19 08:31 Dose: 1 gm Trazodone HCl (Desyrel Tab*) 50 mg PO QPM [facility] Last Admin: 02/08/19 17:25 Dose: 50 mg Zinc Oxide (Triple Paste 12.8% (Topical)) 1 applic TOPICAL BID [facility] Last Admin: 02/09/19 08:32 Dose: 1 applic Vital Signs - 8 hr 02/09/19 02/09/19 02/09/19 03:15 07:21 08:00 Temperature 97.9 F 97.8 F Pulse Rate 57 55 Respiratory 16 16 16 Rate Blood Pressure 134/56 189/56 (mmHg) O2 Sat by Pulse 97 99 99 Oximetry Oxygen Devices in Use Now: None Appearance: Patient is an 88yo female who appears stated age and is sitting in the bed in [facility]. Eyes: No Scleral Icterus, PERRLA Ears/Nose/Mouth/Throat: NL Teeth, Lips, Gums, Clear Oropharnyx, Mucous Membranes Moist Neck: NL Appearance and Movements; NL JVP, Trachea Midline Respiratory: Symmetrical Chest Expansion and Respiratory Effort, Clear to Auscultation Cardiovascular: NL Sounds; No Murmurs; No JVD, RRR, No Edema Abdominal: No Hepatosplenomegaly, - - Tender to palpation over the epigastric area. Normoactive bowel sounds. Lymphatic: No Cervical Adenopathy Extremities: No Edema, No Clubbing, Cyanosis Skin: No Rash or Ulcers, No Nodules or Sclerosis Neurological: Alert and Oriented x 3, NL Sensation, NL Muscle Strength and Tone , - - CN II-XII intact. Result Diagrams: 02/09/19 05:52 02/09/19 05:52 Additional Lab and Data: Laboratory Results - last 24 hr Microbiology and Other Data: Microbiology 02/05/19 14:12 Aerobic Blood Culture - Preliminary Blood Venous No Growth Day 1 Anaerobic Blood Culture - Preliminary 02/04/19 23:27 Urine Culture - Preliminary Urine Escherichia Coli 02/05/19 11:31 Aerobic Blood Culture - Preliminary Blood Venous Escherichia Coli Anaerobic Blood Culture - Preliminary Escherichia Coli 02/04/19 23:10 Aerobic Blood Culture - Preliminary Blood Venous Escherichia Coli Anaerobic Blood Culture - Preliminary No Growth Day 1 02/04/19 22:29 Aerobic Blood Culture - Preliminary Blood Venous Escherichia Coli Anaerobic Blood Culture - Preliminary Escherichia Coli 02/05/19 07:13 Nasal Screen MRSA (PCR) - Final Nasal Mrsa Not Detected 02/04/19 21:47 Influenza Types A,B Antigen - Final Nasal Specimen received for Influenza A/B Molecular testing Assess/Plan/Problems-Billing Assessment: 88 yr old female with PMH for Dementia, takotsubo, htn, anxiety/depression, gerd ; who presented to ED this with cough, fever and weakness and was found to be bacteremic with E. coli from a likely urinary source who is improving but is having significant issues with fatigue and dysphagia. - Patient Problems (1) Sepsis Current Visit: Yes Status: Acute Comment: - Secondary to bactermia (Ecoli in blood cultures) secondary to urinary tract infection. - ID consulting and we appreciate their assistance. - Kidney US unremarkable - Afebrile >48hrs - Switch to Keflex per ID - Repeat blood cultures negative (2) Urinary tract infection Current Visit: Yes Status: Acute Comment: - With E. coli, pansensitive - Switch to Keflex - US reveals unremarkable tract. (3) Dysphagia Current Visit: Yes Status: Acute Code(s): R13.10 - DYSPHAGIA, UNSPECIFIED SNOMED Code(s): 05842247 Comment: - Ongoing difficulty swallowing with solids - Appreciate [employer] input, change to pureed diet. - Likely due to progression of dementia, no other new neurological deficits to indicate possible CVA - Encourage PO intake (4) History of cardiomyopathy Current Visit: Yes Status: Acute Code(s): Z86.79 - PERSONAL HISTORY OF OTHER DISEASES OF THE CIRCULATORY SYSTEM SNOMED Code(s): 515772293514173 Comment: - Due to Takotsubo's disease - Increased EF to 50-55% from a low of 40-45% - JVD not noted today, no other signs of fluid overload - CXR shows no fluid overload - No exacerbation. (5) HTN (hypertension) Current Visit: Yes Status: Acute Code(s): I10 - ESSENTIAL (PRIMARY) HYPERTENSION SNOMED Code(s): 99618330 Comment: - Restart Losartan and Metoprolol, [place] hypertensive. (6) Pneumonia Current Visit: Yes Status: Acute Code(s): J18.9 - PNEUMONIA, UNSPECIFIED ORGANISM SNOMED Code(s): 618955633 Comment: - Consider repeat imaging outpatient - On Keflex - Not likely source of bacteremia and sepsis, possibly only pneumonitis from aspiration - Switch to Pureed diet per speech therapy. (7) Altered mental status, unspecified Current Visit: No Status: Acute Code(s): R41.82 - ALTERED MENTAL STATUS, UNSPECIFIED SNOMED Code(s): 371985285 Comment: - Toxic metabolic Encephalopathy - Suspected secondary to dementia and acute illness - Resolved (8) Dementia Current Visit: Yes Status: Acute Code(s): F03.90 - UNSPECIFIED DEMENTIA WITHOUT BEHAVIORAL DISTURBANCE SNOMED Code(s): 62329480 Comment: - Supportive care (9) Abdominal pain Current Visit: Yes Status: Acute Code(s): R10.9 - UNSPECIFIED ABDOMINAL PAIN SNOMED Code(s): 24031863 Comment: - Unclear cause, history of GERD, most likely cause - Continue sucralfate, Omeprazole and use Maalox PRN - KUB pending to assess for distention or other pathology. (10) Depression Current Visit: No Status: Acute Code(s): F32.9 - MAJOR DEPRESSIVE DISORDER, SINGLE EPISODE, UNSPECIFIED SNOMED Code(s): 67918450 Comment: - Cont Lexapro at lower dose given advanced age. (11) DVT prophylaxis Current Visit: No Status: Acute Code(s): XWN3965 - SNOMED Code(s): 395418731 Comment: - HSQ Status and Disposition: Inpatient. Return to [facility] when medically stable. May need to wait until monday due to lack of intake nurse.
[2019-02-09] MEDS: traZODone TAB* 50 MG TAB PO SCH (16:51)
[2019-02-09] MEDS: Carboxymethylcellulose/Glyceri 10 ML OPHTH.GEL lubricant eye gel BOTH EYES SCH (16:51)
[2019-02-09] MEDS: Cephalexin CAP* 500 MG PO SCH (20:18)
[2019-02-09] MEDS: Metoprolol Succinate XL TAB* 25 MG PO SCH (20:19)
[2019-02-10] MEDS: Heparin VIAL(*) 5000 UNITS/ML VIAL (FIVE THOUSAND) SUBCUT SCH ×3 (06:21→20:35)
[2019-02-10] MEDS: Sucralfate TAB* 1 GM PO SCH ×3 (06:21→17:05)
[2019-02-10] MEDS: Acetaminophen TAB* 325 MG PO PRN ×2 (06:30→13:49)
[2019-02-10] MEDS: Polyethylene Glycol 3350* 17 GM PACKET PO SCH (08:05)
[2019-02-10] MEDS: Fluticasone NASAL SPRAY 50MCG* 16 gm SPRAY BTL BOTH NARES SCH ×2 (08:06→20:33)
[2019-02-10] MEDS: Magnesium Oxide TAB* 400 MG PO SCH (08:06)
[2019-02-10] MEDS: Polyethyl Glycol/Propylene Gly OPHTH.SOLN BOTH EYES SCH (08:06)
[2019-02-10] MEDS: Oxybutynin XL TAB* 5 MG PO SCH (08:07)
[2019-02-10] MEDS: Calcium/Vitamin D TAB 250/125* TAB PO SCH ×2 (08:07→20:33)
[2019-02-10] MEDS: Pantoprazole TAB * 40 MG TAB PO SCH (08:07)
[2019-02-10] MEDS: Cephalexin CAP* 500 MG PO SCH ×2 (08:07→20:33)
[2019-02-10] MEDS: Aspirin EC TAB* 81 MG TAB.EC PO SCH (08:07)
[2019-02-10] MEDS: Losartan TAB* 25 MG PO SCH (08:07)
[2019-02-10] MEDS: ZINC OXIDE 12.8% (TOPICAL) 60 GM TUBE TOPICAL SCH ×2 (08:28→20:34)
[2019-02-10] MEDS ORDERED: Losartan TAB* 25 MG PO ONE (09:41)
--- NOTE | 2019-02-10 13:30 | PN ---
Subjective Date of Service: 02/10/19 Interval History: Patient offers no complaints today. Patient is more alert than previously. Patient denies Abdominal pain, chest pain, SOB, N/V, dysuria, F/C, or other pain. Family History: Unchanged from Admission Social History: Unchanged from Admission Past Medical History: Unchanged from Admission Objective Active Medications: Acetaminophen (Tylenol Tab*) 650 mg PO Q4H PRN PRN Reason: FEVER/PAIN Last Admin: 02/10/19 06:30 Dose: 650 mg Acetaminophen (Tylenol Supp*) 650 mg [place] Q4H PRN PRN Reason: FEVER/PAIN Last Admin: 02/05/19 11:14 Dose: 650 mg Al Hydrox/Mg Hydrox/Simethicone (Maalox Plus*) 30 ml PO Q6H PRN PRN Reason: INDIGESTION Last Admin: 02/08/19 22:19 Dose: 30 ml Albuterol (Ventolin 2.5 Mg/3 Ml Neb.Cassie*) 2.5 mg INH Q4H PRN PRN Reason: SOB/WHEEZING Aspirin (Aspirin Ec Tab*) 81 mg PO DAILY [facility] Last Admin: 02/10/19 08:07 Dose: 81 mg Calcium/Vitamin D (Oscal D Tab 250/125*) 1 tab PO BID [facility] Last Admin: 02/10/19 08:07 Dose: 1 tab Carboxymethylcellulose/Glycerin (Refresh Optive Gel Eye Gel) 1 applic BOTH EYES QPM [facility] Last Admin: 02/09/19 16:51 Dose: 1 applic Cephalexin HCl (Keflex Cap*) 500 mg PO BID [facility] Last Admin: 02/10/19 08:07 Dose: 500 mg Diazepam (Valium Tab(*)) 2.5 mg PO Q6H PRN PRN Reason: ANXIETY Last Admin: 02/06/19 14:23 Dose: 2.5 mg Fluticasone Propionate (Flonase Nasal [place] 50mcg*) 1 spray BOTH NARES BID [facility] Last Admin: 02/10/19 08:06 Dose: 1 spray Guaifenesin/Dextromethorphan (Robitussin Dm*) 10 ml PO Q4H PRN PRN Reason: COUGH Heparin Sodium (Porcine) (Heparin Vial(*)) 5,000 units SUBCUT Q8HR [facility] Last Admin: 02/10/19 06:21 Dose: 5,000 units Losartan Potassium (Cozaar Tab*) 75 mg PO DAILY [facility] Magnesium Oxide (Magox 400 Tab*) 400 mg PO DAILY [facility] Last Admin: 02/10/19 08:06 Dose: 400 mg Metoprolol Succinate (Toprol Xl Tab*) 25 mg PO BEDTIME [facility] Last Admin: 02/09/19 20:19 Dose: 25 mg Ondansetron HCl (Zofran Inj*) 4 mg IV Q4H PRN PRN Reason: NAUSEA/VOMITING Oxybutynin Chloride (Ditropan Xl Tab*) 15 mg PO DAILY [facility] Last Admin: 02/10/19 08:07 Dose: 15 mg Pantoprazole Sodium (Protonix Tab*) 40 mg PO DAILY [facility] Last Admin: 02/10/19 08:07 Dose: 40 mg Polyethyl Glycol/Propylene Glycol (Lubricant Eye Drops) 1 drop BOTH EYES DAILY [facility] Last Admin: 02/10/19 08:06 Dose: 1 drop Polyethylene Glycol/Electrolytes (Miralax*) 17 gm PO DAILY [facility] Last Admin: 02/10/19 08:05 Dose: 17 gm Senna (Senokot Tab*) 2 tab PO DAILY PRN PRN Reason: CONSTIPATION Sucralfate (Carafate*) 1 gm PO 0630,1100,1600 [facility] Last Admin: 02/10/19 10:33 Dose: 1 gm Trazodone HCl (Desyrel Tab*) 50 mg PO QPM [facility] Last Admin: 02/09/19 16:51 Dose: 50 mg Zinc Oxide (Triple Paste 12.8% (Topical)) 1 applic TOPICAL BID [facility] Last Admin: 02/10/19 08:28 Dose: 1 applic Vital Signs - 8 hr 02/10/19 02/10/19 02/10/19 07:40 07:46 11:09 Temperature 98.2 F 98.4 F Pulse Rate 67 31 Respiratory 1 16 16 Rate Blood Pressure 159/49 144/52 (mmHg) O2 Sat by Pulse 98 98 98 Oximetry Oxygen Devices in Use Now: None Appearance: Patient is an 88yo female who appears stated age and is sitting in the bed in [facility]. Eyes: No Scleral Icterus, PERRLA Ears/Nose/Mouth/Throat: NL Teeth, Lips, Gums, Clear Oropharnyx, Mucous Membranes Moist Neck: NL Appearance and Movements; NL JVP, Trachea Midline Respiratory: Symmetrical Chest Expansion and Respiratory Effort, Clear to Auscultation Cardiovascular: NL Sounds; No Murmurs; No JVD, RRR, No Edema Abdominal: NL Sounds; No Tenderness; No Distention, No Hepatosplenomegaly Lymphatic: No Cervical Adenopathy Extremities: No Edema, No Clubbing, Cyanosis Skin: No Rash or Ulcers, No Nodules or Sclerosis Neurological: NL Sensation, - - Right sided peripheral facial droop. Alert and oriented only to self. Result Diagrams: 02/09/19 05:52 02/09/19 05:52 Additional Lab and Data: Laboratory Results - last 24 hr Microbiology and Other Data: Microbiology 02/05/19 14:12 Aerobic Blood Culture - Preliminary Blood Venous No Growth Day 1 Anaerobic Blood Culture - Preliminary 02/04/19 23:27 Urine Culture - Preliminary Urine Escherichia Coli 02/05/19 11:31 Aerobic Blood Culture - Preliminary Blood Venous Escherichia Coli Anaerobic Blood Culture - Preliminary Escherichia Coli 02/04/19 23:10 Aerobic Blood Culture - Preliminary Blood Venous Escherichia Coli Anaerobic Blood Culture - Preliminary No Growth Day 1 02/04/19 22:29 Aerobic Blood Culture - Preliminary Blood Venous Escherichia Coli Anaerobic Blood Culture - Preliminary Escherichia Coli 02/05/19 07:13 Nasal Screen MRSA (PCR) - Final Nasal Mrsa Not Detected 02/04/19 21:47 Influenza Types A,B Antigen - Final Nasal Specimen received for Influenza A/B Molecular testing Assess/Plan/Problems-Billing Assessment: 88 yr old female with PMH for Dementia, takotsubo, htn, anxiety/depression, gerd ; who presented to ED this with cough, fever and weakness and was found to be bacteremic with E. coli from a likely urinary source who is improving and pending discharge back to [place]. - Patient Problems (1) Sepsis Current Visit: Yes Status: Acute Comment: - Secondary to bactermia (Ecoli in blood cultures) secondary to urinary tract infection. - ID consulting and we appreciate their assistance. - Kidney US unremarkable - Afebrile >48hrs - Switch to Keflex per ID - Repeat blood cultures negative - Resolved. (2) Urinary tract infection Current Visit: Yes Status: Acute Comment: - With E. coli, pansensitive - Switch to Keflex - US reveals unremarkable tract. (3) Dysphagia Current Visit: Yes Status: Acute Code(s): R13.10 - DYSPHAGIA, UNSPECIFIED SNOMED Code(s): 56280458 Comment: - Ongoing difficulty swallowing with solids - Appreciate ORTHOPEDIC DENTIST input, change to pureed diet. - Likely due to progression of dementia, no other new neurological deficits to indicate possible CVA - Encourage PO intake (4) History of cardiomyopathy Current Visit: Yes Status: Acute Code(s): Z86.79 - PERSONAL HISTORY OF OTHER DISEASES OF THE CIRCULATORY SYSTEM SNOMED Code(s): 149315413271086 Comment: - Due to Takotsubo's disease - Increased EF to 50-55% from a low of 40-45% - CXR shows no fluid overload - No exacerbation. (5) HTN (hypertension) Current Visit: Yes Status: Acute Code(s): I10 - ESSENTIAL (PRIMARY) HYPERTENSION SNOMED Code(s): 19944718 Comment: - Increase Losartan, continue Metoprolol - Mildly Hypertensive. (6) Pneumonia Current Visit: Yes Status: Acute Code(s): J18.9 - PNEUMONIA, UNSPECIFIED ORGANISM SNOMED Code(s): 538700061 Comment: - Not evident on Repeat CXR - On Keflex - Not likely source of bacteremia and sepsis, possibly only pneumonitis from aspiration - Switch to Pureed diet per speech therapy. (7) Altered mental status, unspecified Current Visit: No Status: Acute Code(s): R41.82 - ALTERED MENTAL STATUS, UNSPECIFIED SNOMED Code(s): 092428141 Comment: - Toxic metabolic Encephalopathy - Suspected secondary to dementia and acute illness - Resolved (8) Dementia Current Visit: Yes Status: Acute Code(s): F03.90 - UNSPECIFIED DEMENTIA WITHOUT BEHAVIORAL DISTURBANCE SNOMED Code(s): 71552738 Comment: - Supportive care (9) Abdominal pain Current Visit: Yes Status: Acute Code(s): R10.9 - UNSPECIFIED ABDOMINAL PAIN SNOMED Code(s): 97330883 Comment: - Likely GERD, Resolved, continue chronic treatments and PRN Maalox (10) Depression Current Visit: No Status: Acute Code(s): F32.9 - MAJOR DEPRESSIVE DISORDER, SINGLE EPISODE, UNSPECIFIED SNOMED Code(s): 38907862 Comment: - Cont Lexapro at lower dose given advanced age. (11) DVT prophylaxis Current Visit: No Status: Acute Code(s): GYF5034 - SNOMED Code(s): 283545704 Comment: - HSQ Status and Disposition: Inpatient. Return to [place] when medically stable. May need to wait until monday due to lack of intake nurse.
[2019-02-10] MEDS: traZODone TAB* 50 MG TAB PO SCH (17:04)
[2019-02-10] MEDS: Carboxymethylcellulose/Glyceri 10 ML OPHTH.GEL lubricant eye gel BOTH EYES SCH (17:05)
[2019-02-10] MEDS: Metoprolol Succinate XL TAB* 25 MG PO SCH (20:33)
[2019-02-11] MEDS: Heparin VIAL(*) 5000 UNITS/ML VIAL (FIVE THOUSAND) SUBCUT SCH (06:09)
[2019-02-11] MEDS: Sucralfate TAB* 1 GM PO SCH (06:09)
[2019-02-11] MEDS: Polyethylene Glycol 3350* 17 GM PACKET PO SCH (08:26)
[2019-02-11] MEDS: Polyethyl Glycol/Propylene Gly OPHTH.SOLN BOTH EYES SCH (08:26)
[2019-02-11] MEDS: ZINC OXIDE 12.8% (TOPICAL) 60 GM TUBE TOPICAL SCH (08:26)
[2019-02-11] MEDS: Fluticasone NASAL SPRAY 50MCG* 16 gm SPRAY BTL BOTH NARES SCH (08:26)
[2019-02-11] MEDS: Cephalexin CAP* 500 MG PO SCH (08:26)
[2019-02-11] MEDS: Calcium/Vitamin D TAB 250/125* TAB PO SCH (08:26)
[2019-02-11] MEDS: Magnesium Oxide TAB* 400 MG PO SCH (08:27)
[2019-02-11] MEDS: Oxybutynin XL TAB* 5 MG PO SCH (08:27)
[2019-02-11] MEDS: Aspirin EC TAB* 81 MG TAB.EC PO SCH (08:27)
[2019-02-11] MEDS: Pantoprazole TAB * 40 MG TAB PO SCH (08:27)
[2019-02-11 08:36] VITALS: BP 174/58
[2019-02-11] MEDS ORDERED: Losartan TAB* 25 MG PO SCH (09:00)
--- NOTE | 2019-02-11 10:56 | DS ---
CC: Dr. Herrmann* DATE OF ADMISSION: 02/05/2019. DATE OF DISCHARGE: 02/11/2019. PRIMARY CARE PHYSICIAN: Dr. Conrado Herrmann. MY ATTENDING PHYSICIAN WHILE IN THE HOSPITAL: Dr. Roosevelt Reed* (dictated by ROMA Watkins). PRIMARY DISCHARGE DIAGNOSES: 1. E. coli bacteremia. 2. Sepsis. 3. Urinary tract infection due to E. coli. 4. Aspiration pneumonitis 5. Abdominal pain likely due to GERD. 6. Acute kidney injury, resolved. SECONDARY DISCHARGE DIAGNOSES: 1. Dementia. 2. History of takotsubo cardiomyopathy, now resolved. 3. Hypertension. 4. Anxiety. 5. Depression. 6. History of endometriosis. 7. Infrequent PVC's. STUDIES DONE WHILE IN THE HOSPITAL: 1. Chest x-ray from 02/04/2019, read as: Stigmata of obstructive lung disease. Minimal bibasilar alveolar opacities may represent atelectasis or inflammatory infiltrate. 2. Chest CT from 02/04/2019, read as: Endobronchial pneumonia right middle and bilateral lower lobes likely due to aspiration. Multiple stable pulmonary nodules which show greater than two year stability, therefore are benign, likely from prior infectious process and per current Fleischner guidelines no followup imaging is recommended. 3. Abdomen/bladder ultrasound from 02/06/2019, read as: Negative for obstructive uropathy. Incomplete distention of the urinary bladder limits assessment. The patient had urgency to void precluding full distention of the urinary bladder. 4. Transthoracic echocardiogram from 02/08/2019, read as: Mild concentric left ventricular hypertrophy is observed. Left ventricular systolic function is at the lower limits of normal. Patient in trigeminy during exam which compromises LV function assessment. The estimated ejection fraction is 50 to 55 percent. The left ventricular diastolic filling pattern is consistent with pseudonormalization. The left atrium is severely dilated. The right ventricular global systolic function is low normal. The right atrium is moderately dilated. The aortic valve leaflets are mildly thickened. There is a trace of aortic regurgitation. The mitral valve leaflets are mildly thickened. There is mild mitral regurgitation. There is moderate tricuspid regurgitation. There is evidence of mild to moderate pulmonary hypertension. Interval improvement in EF from 02/11/2018 from 40 to 45 percent. 5. Chest x-ray from 02/08/2019, read as: No acute intrathoracic disease. 6. Abdomen x-ray from 02/09/2019, read as: No signs of obstruction, normal bowel gas pattern. MEDICATIONS AT DISCHARGE: 1. Sucralfate 1 gm p.o. b.i.d. 2. Nitrostat 0.4 mg sublingual q.5 minutes as needed. 3. Polyethylene Glycol 17 gm p.o. daily. 4. Magnesium Oxide 400 mg p.o. daily. 5. Oxybutynin 50 mg p.o. daily. 6. Fluticasone one spray both nares b.i.d. 7. Senna two tabs daily as needed. 8. Tylenol 650 mg p.o. q.6 hours as needed. 9. Artificial tears one ointment both eyes nightly. 10. Zinc Oxide topical 12.8% topical b.i.d. 11. Diazepam 2 mg p.o. b.i.d. 12. Calcium carbonate one tab p.o. b.i.d. 13. Trazodone 50 mg p.o. q.p.m. 14. Biotene 0.14% two sprays p.o. q.3 hours as needed for dry mouth. 15. Robitussin 10 ml p.o. q.4 hours as needed. 15. Refresh eye drops one drop both eyes daily. 15. Metoprolol Succinate 20 mg p.o. at bedtime. 16. Maalox 30 ml p.o. q.6 hours as needed for ingestion. 17. Keflex 500 mg p.o. b.i.d. times 5 capsules. 18. Lexapro 10 mg p.o. daily. 19. Losartan 100 mg p.o. daily. 20. Clotrimazole shanice 10 mg by mouth 5 times a day for 10 days. 21. Omeprazole 20 mg p.o. b.i.d. times 14 doses, then decreasing to daily. New medications at discharge: Maalox, Keflex, Lexapro, Losartan, Clotrimazole, Omeprazole. Medications discontinued at discharge: Aspirin 81 mg p.o. daily, Lexapro 15 mg p.o. daily, Losartan 50 mg p.o. daily, Omeprazole 20 mg p.o. daily. HOSPITAL COURSE: This is a brief summary of the patient's presentation. For more details, please see history and physical from Anna Sage D.O. on 2018. In brief, the patient is an 88-year-old female with a past medical history significant for the above who presented to the emergency department with several days of lethargy, weakness, fever, and cough. The patient in the emergency department was found to have an elevated white blood cell count, an elevated temperature, and altered mental status. The patient had chest x-ray findings as above and was eventually started on Clindamycin for aspiration pneumonia. The patient initially did not improve. The patient's blood cultures grew out E. coli and the patient was switched to Cefepime. A urinary source was suspected. The patient did have a urinalysis suggestive of a urinary tract infection with 3+ leukocyte esterase. The patient's urine culture did grow out pansensitive E. coli as did her repeat blood cultures. The patient had repeat blood cultures again on 02/06/2019 which were negative. The patient was transitioned from Cefepime to Ceftriaxone. The patient had an abdomen and bladder ultrasound which was unremarkable as above. The patient was initially extremely lethargic, but had quick improvement in her mental status and functional capacity as well as her temperature. The patient did not have a fever since 02/05/2019. The patient was transitioned from IV to oral antibiotics. The patient continued to be lethargic and had possible signs of fluid overload, so a transthoracic echocardiogram was performed as above. Chest x-ray was negative for fluid overload and the patient's edema and JVD which were observed resolve without intervention. The patient's functional capacity and mental state continued to improve. The patient had moderate abdominal pain in her epigastric area which was improved with Maalox. The patient had an abdominal x-ray which was unremarkable. The patient's abdominal pain improved but was still present on the day of discharge. The patient during her hospital had evaluation by Speech Language Pathology who recommended a pureed diet which she tolerated very well and had adequate oral intake while she was in the hospital. The patient was stable and amendable for discharge on 02/11/2019. PHYSICAL EXAMINATION ON THE DAY OF DISCHARGE: General: The patient is an 88- year- old female who appears stated age and is sitting comfortably in bed, in no acute distress. Vital Signs at the time of evaluation: Temperature 98.2, pulse rate 75, respiratory rate 16, oxygen saturation 98 percent on room air, blood pressure 174/58. HEENT: Head normocephalic, atraumatic. Sclerae anicteric. No conjunctival injection. Nasal mucosa moist. Oral mucosa moist. No pharyngeal erythema. Diffuse redness of the mouth consistent with thrush. Neck: Supple, nontender. No lymphadenopathy. No carotid bruits auscultated. No JVD. Cardiac: Regularly irregular rhythm consistent with PVC's. No clicks, murmurs, gallops, or rubs. Pulses are 2+ in the bilateral dorsalis pedis, posterior tibialis, and radial areas. Respiratory: Clear to auscultation bilaterally. No wheezes, rales, or rhonchi. Good air exchange bilaterally. Abdomen: Soft, mildly tender to palpation in the epigastric area. Bowel sounds are present. Normoactive in all four quadrants. No hepatosplenomegaly. No abdominal bruits auscultated. Nondistended. Genitourinary: No suprapubic or CVA tenderness. Skin: Clean, dry, and intact. No rash. Neuro: Peripheral facial droop on the right side side, chronic and unchanged. Psychiatric: Pleasant and cooperative. DISCHARGE PLAN: The patient will be discharged back [facility]. The patient will have five more days of Keflex for her bacteremia. The patient is improving. The patient has what appears to be thrush. The patient will be started on ten days of Clotrimazole shanice. The patient is maintaining her adequate oral intake. The patient's kidney function returned to her baseline and maintained that without intravenous fluids. The patient's chest x-ray findings were interpreted to be related to pneumonitis without representing aspiration pneumonia. The patient is improving on Keflex alone. The patient should be activity as tolerated. The patient should have aspiration precautions , including sitting up during meals and chewing her food thoroughly. The patient's Losartan was increased for her hypertension while in the hospital. The patient's blood pressure should be monitored and followed up with her primary care provider within one week. The patient has been referred to an ball points inspector by her mobile home installer. It is unclear if this has occurred or not. If it has not, this should be done and the patient should follow-up with her mobile home installer per routine. The patient has no active signs of fluid overload at the time of discharge. The patient's aspirin has been discontinued due to her abdominal discomfort. This may be resumed per the recommendation of her primary care provider. The patient for her GERD will be continued on her Carafate. The patient's Omeprazole will be increased for 14 days and then decreased back down to her maintenance dose and the patient should have Maalox as needed for stomach upset. TIME SPENT: Approximately 60 minutes were spent on the discharge of this patient, 30 of which were spent [id number] with the patient obtaining history and physical and discussing treatment plan. ROMA WATKINS [id number]/[facility] #: [id number] [place]
== END 2019-02-11 11:30 | disposition home or self-care (01) | DRG 871 ==
LOC: ED 21:33 → MEDTELE 02-05 02:19
PROVIDERS: ADMIT Pediatrics; ATTEND Student in an Organized Health Care Education/Training Program
DX: A41.51 Sepsis due to Escherichia coli [E. coli] (principal); J69.0 Pneumonitis due to inhalation of food and vomit; N39.0 Urinary tract infection, site not specified; I51.81 Takotsubo syndrome; N17.9 Acute kidney failure, unspecified; F03.90 Unspecified dementia, unspecified severity, without behavioral disturbance, psychotic disturbance, mood disturbance, and anxiety; I10 Essential (primary) hypertension; I25.10 Atherosclerotic heart disease of native coronary artery without angina pectoris; G89.29 Other chronic pain; J44.9 Chronic obstructive pulmonary disease, unspecified; F41.9 Anxiety disorder, unspecified; K21.9 Gastro-esophageal reflux disease without esophagitis; Z66 Do not resuscitate; Z88.0 Allergy status to penicillin; Z88.8 Allergy status to other drugs, medicaments and biological substances; Z88.6 Allergy status to analgesic agent; Z88.1 Allergy status to other antibiotic agents
CPT/HCPCS: 36415; 71045; 71250; 74018; 76770; 80048; 80053; 81003; 81015; 83605; 83735; 84484; 85025; 85610; 85730; 87040; 87077; 87086; 87186; 87205; 87641; 93306; 94640; 99284; A9270-GY; G8978-GP-CI; G8979-GP-CI; G8980-GP-CI; J0692; J0696; J1644